=== PATIENT | male | born 1990 | race Caucasian/White ===

== ENCOUNTER 2019-02-17 17:49 | Inpatient (IN) ==
--- NOTE | 2019-02-17 18:01 | Emergency Department Note ---
Disposition Clinical Impression: Suicidal ideation, Acute psychosis Disposition: Admitted As Inpatient Condition: Fair Referrals: NONE,PCP [Primary Care Provider] - Time of Disposition: 20:54 Psych HPI - General Stated Complaint: SI Time Seen by Provider: 02/17/19 17:52 Source: EMS - History of Present Illness HPI Narrative: This is a 28-year-old gentleman with a history of bipolar disorder and schizophrenia who presents today for evaluation for suicidal ideation. Patient was seen ar [facility] ED today and evaluated for this presentation. He was sent here for psychiatric evaluation for SI and acute psychosis. Patient is not giving me much history. Patient tells me that he has been traveling. He has no physical complaints. I reviewed the notes from his recent ED visit at [facility] today. He apparently has been having some hallucinations and some suicidal ideation and there has been concern by family. His mom is not here at this time. Pt complaint: suicidal ideation History of similar episodes: Yes Associated Psychiatric Symptoms: suicidal ideation, auditory hallucinations - Related Data Home Medications Medication Instructions Recorded Confirmed Divalproex Sodium [Depakote] 250 mg PO BID 02/17/19 02/17/19 Loxapine Succinate [Loxapine] 10 mg PO QID 02/17/19 02/17/19 OLANZapine [Zyprexa] 2.5 mg PO DAILY 02/17/19 02/17/19 Allergies Allergy/AdvReac Type Severity Reaction Status Date / Time acetaminophen [From Percocet] AdvReac Itching Verified 02/17/19 15:17 oxycodone [From Percocet] AdvReac Itching Verified 02/17/19 15:17 Limitations: ROS unobtainable due to patients medical condition Constitutional: Denies: fever Cardiovascular: Denies: chest pain Gastrointestinal: Denies: abdominal pain Psychiatric: Reports: depression, auditory hallucinations, other (Patient does not give much history. He is remaining silent for most of the evaluation.) Past Medical History - Past Medical History Medical history: Reports: no medical history, other Surgical history: Reports: no surgical history Psychiatric history: Reports: anxiety, bipolar, panic disorder, PTSD, schizophrenia, previous psychiatric hospitalization - Social History Smoking Status: Former smoker Smokeless Tobacco Status: No Alcohol use: Reports: none Drug use: Reports: none Physical Exam - General Limitations: no limitations General appearance: alert, in no apparent distress - Head Head exam: atraumatic, normocephalic, normal inspection - Eye Eye exam: Present: normal appearance, PERRL, EOMI - Expanded Eye Exam Pupils: Left: reactive - ENT ENT exam: normal exam, normal oropharynx, mucous membranes moist - Expanded ENT Exam External ear exam: Present: normal external inspection Mouth exam: Present: normal external inspection Teeth exam: Present: normal inspection Throat exam: Present: normal inspection - Neck Neck exam: Present: normal inspection, full ROM, trachea midline - Chest Chest inspection: Present: normal inspection, symmetric chest wall rise - Respiratory Respiratory exam: Present: normal lung sounds bilaterally - Cardiovascular Cardiovascular exam: Present: regular rate, normal rhythm, normal heart sounds - Abdominal Exam Abdominal exam: Present: soft, Non-Tender. Absent: tenderness, distention, guarding, rebound, rigidity - Extremities Exam Extremities exam: Present: normal inspection, full ROM. Absent: tenderness, pedal edema - Expanded Upper Extremity Exam Shoulder exam: Present: normal inspection, full ROM Arm exam: Present: normal inspection, full ROM Elbow exam: Present: normal inspection, full ROM Forearm/Wrist exam: Present: normal inspection, full ROM Hand exam: Present: normal inspection, full ROM Vascular exam: Normal: capillary refill, radial pulse - Expanded Lower Extremity Exam Hip/Pelvis exam: Present: normal inspection, full ROM Upper leg exam: Present: normal inspection, full ROM Knee exam: Present: normal inspection, full ROM Lower leg exam: Present: normal inspection, full ROM Ankle exam: Present: normal inspection, full ROM Foot/toe exam: Present: normal inspection, full ROM Neurovascular/Tendon exam: Absent: motor deficit, sensory deficit, tendon deficit - Back Exam Back exam: Present: normal inspection, full ROM. Absent: tenderness - Neurological Exam Neurological exam: Present: alert, oriented X3 - Expanded Neurological Exam Patient oriented to: Present: person, place, time Coma Scale Eye Opening: Spontaneous Coma Scale Motor Response: Obeys Commands Coma Scale Verbal Response: Oriented Coma Scale Total: 15 - Psychiatric Psychiatric exam: Present: normal mood, depressed, flat affect, other (Patient has a flat affect. He is not very cooperative. He appears withdrawn.) - Skin Skin exam: Present: warm, dry, intact, normal color Course Vital Signs Temperature 99.1 F 02/17/19 17:57 Pulse Rate 79 02/17/19 17:57 Respiratory Rate 16 02/17/19 17:57 Blood Pressure 111/75 09/13/19 17:57 O2 Sat by Pulse Oximetry 98 02/17/19 17:57 Temperature 99.1 F 02/17/19 17:57 Pulse Rate 79 02/17/19 17:57 Respiratory Rate 16 02/17/19 17:57 Blood Pressure 111/75 02/17/19 17:57 O2 Sat by Pulse Oximetry 98 02/17/19 17:57 Oxygen Delivery Oxygen Delivery Room Air Psych - MDM Narrative Medical decision making narrative: She denies significant psychosis with suicidal ideation. Labs done at [facility] e reviewed. Patient is medically cleared for psychiatric evaluation. 2049 Patient has been seen by psychiatry. Patient will be admitted. She is medically stable. Psychiatric Medical Clearance - Medical Clearance Checklist Does the patient have a NEW psychiatric condition?: Yes Any abnormalities indicating possible medical illness?: No Any history of medical issues?: No Medical History: No Social History Section defined Any abnormal vital signs prior to transfer?: No Current Vitals: Last Vital Signs Temp 99.1 F 02/17/19 17:57 Pulse 79 02/17/19 17:57 Resp 16 02/17/19 17:57 BP 111/75 02/17/19 17:57 Pulse Ox 98 02/17/19 17:57 Is the patient intoxicated or cognitively impaired?: No Any abnormalities on the physical exam?: No Any abnormal labs?: No Statement of Medical Clearance: I have evaluated the patient, reviewed diagnostic information, and certify that the patient's medical condition is sufficiently stable that transfer to the psychiatric unit does not pose a significant risk of deterioration.
[2019-02-17] MEDS ORDERED: MOM Conc 10 ML UD.LIQ PO PRN (21:23)
[2019-02-17] MEDS ORDERED: Haloperidol Lactate 5 MG/ML VIAL IM PRN (21:23)
[2019-02-17] MEDS ORDERED: *HR* LORazepam 2 MG/ML VIAL IM PRN (21:23)
[2019-02-17] MEDS ORDERED: *HR* LORazepam 1 MG TABLET PO PRN (21:23)
[2019-02-17] MEDS ORDERED: Mag Hydrox/Al Hydrox/Simeth 30 ML UDC PO PRN (21:23)
[2019-02-17] MEDS ORDERED: Ibuprofen 400 MG TABLET PO PRN (21:23)
[2019-02-17] MEDS ORDERED: *HR* LORazepam 1 MG TABLET PO ONE (21:31)
[2019-02-17] MEDS ORDERED: OLANZapine 5 MG TAB.RAPDIS PO ONE (21:31)
--- NOTE | 2019-02-18 10:00 | Psychiatry History & Physical ---
Date of Encounter: 02/18/19 Time of Encounter: 09:40 History of Present Illness Patient Stated Chief Complaint: "I do not know" Medicare Admission Attestation: For traditional Medicare patients the provided hospital inpatient services are reasonable and necessary and in the case of services not specified as inpatient-only under 42 CFR 419.22 (n), that they are appropriately provided as inpatient services in accordance 42 CFR 412.3. For Critical Access Hospital the patient may reasonably be expected to be discharged or transferred to a hospital within 96 hours after admission to the Critical Access Hospital. Admitted From: Emergency Dept Plans for Post Hospital Care: Home History of Present Illness: Mr. Murillo is a 28 year old male who was brought to the ED via EMS with report of suicidal ideations. Per EMS report they were called to the patient's residence for suicidal ideation. Patient's mother told EMS that patient has a history of bipolar disorder and schizophrenia and has been out of his medications. She stated that he had wandered off this morning and was found walking on the train tracks. Mother stated that patient tried to get away from her to step in front of an oncoming train. Mother also stated the patient had made threats of burning down the house. Mother also stated the patient has been hallucinating and has not eaten or taken a shower in the past 4 days. Patient was assisted to the cotton brought to the ED. On arrival here patient appears somewhat catatonic. He is not answering most questions. When I asked him why he was here he stated that he wants to leave and get a salad. He told the nurse that he wanted to go to [employer]. I asked him if he was walking on change tracks today and he said no. I asked him what he was doing he stated "I found the paper. Daughter was there. On review of systems the only answer the patient gave was that he was slightly nauseous. He denies any pain. He was cooperative with my physical exam which shows that he is somewhat disheveled and dirty but not in any distress. We were told patient has not been taking his medications. His pharmacy was contacted who stated that he had not picked up any refills since October and he is apparently supposed to be on loxapine, Depakote and Zyprexa. Records show that he was seen at [facility] ED on February 13 after disappearing for several hours. He will was apparently evaluated by one day and referred to follow up with [facility]. Patient's chart indicates he has a history of anxiety, schizophrenia, bipolar disorder, PTSD and panic disorder. When asked specifically about homicidal or suicidal ideations patient does not answer me. I attempted to contact his mother on the phone number that was given to EMS and there was no answer in the mailbox is full. Based on the information provided to EMS there is concern the patient is suicidal and high risk at this time. This morning he is grossly disorganized and appears somewhat catatonic. He is standing and walking at times and other times posturing in odd ways. At times he is echolalic repeating after me what I say. At no times is he able to coherently answer question. Night he did tell the psychiatric nurse that he needed Zyprexa so he was started on that. He is not taking care of his basic ADLs. He tried to kill himself by walking into train tracks and also make comments at the home to burn down the house so he is clearly at risk of harm to himself and others if not treated. Past Med Surg Social Fam HX - Past Medical History Medical history: no medical history, other - Past Psychiatric History Psychiatric history: Reports: bipolar, schizophrenia, previous psychiatric hospitalization Past psychiatric history details: According to records he has previously been diagnosed with post get from and bipolar disorder which would more likely be actually diagnosis of schizoaffective disorder. It is not clear if he is linked with outpatient services and he will not answer me. He has had prior psychiatric hospitalizations. He will not respond if he has been trying to hurt himself before this most recent episode. Family psychiatric history: No Family History of Suicide: None - Past Surgical History Surgical History: no surgical history - Social History Smoking Status: Former smoker Smokeless Tobacco Status: No Alcohol use: none Drug use: none Medications & Allergies Divalproex Sodium [Depakote] 250 mg PO BID 02/17/19 [History] Loxapine Succinate [Loxapine] 10 mg PO QID 02/17/19 [History] OLANZapine [Zyprexa] 2.5 mg PO DAILY 02/17/19 [History] Allergy/AdvReac Type Severity Reaction Status Date / Time acetaminophen [From Percocet] AdvReac Itching Verified 02/17/19 15:17 oxycodone [From Percocet] AdvReac Itching Verified 02/17/19 15:17 Review of Systems ROS unobtainable: due to patient condition Psychiatric: Reports: auditory hallucinations, visual hallucinations, difficulty concentrating Exam - HEENT Head exam IM: Present: atraumatic Eye exam IM: Present: EOMI ENT exam IM: Present: mucous membranes dry - Neurological Neurological exam: Present: CN II-XII intact (Grossly) - Respiratory Respiratory exam IM: Absent: respiratory distress - GI/Abdominal GI/Abdominal exam IM: Present: no peritoneal signs - Extremities Extremities exam IM: Present: full ROM - Skin Skin exam IM: Absent: abrasion - Constitutional Vitals: Temp Pulse Resp BP Pulse Ox 98.3 F 67 14 104/68 100 02/18/19 09:00 02/18/19 09:00 02/18/19 09:00 02/18/19 09:00 02/18/19 09:00 General appearance: disheveled, malodorous, thin - Musculoskeletal Gait: shuffling Station: stooped Strength & Tone: normal for patient - Psychiatric Patient Orientation: Yes Person Level of alertness: Follows commands (Sometimes) Behavior: guarded, suspicious, withdrawn Psychomotor activity: Slowed Eye Contact: No Eye Contact Mood Description: Other Patient description of mood: Will not answer regarding his mood Affect description: flat Speech Volume: No speech Speech pattern: impoverished Language & Vocabulary: limited Thought Process: Thought Blocking Thought Content: Yes Suicidal ideation, Yes Homicidal ideation, Yes Paranoid delusion Perceptual Disturbances: Yes Auditory hallucinations, Yes Visual hallucinations Attention Span Ability: Unable to Focus, Unable to Sustain Attention Memory Description: Immediate Impaired, Recent Impaired, Remote Impaired Patient Reliability: Not Reliable Historian Fund of knowledge: No aware of current events Intelligence Estimate: Below Average Judgment: Poor Insight: None Assessment and Plan (1) Schizoaffective disorder Current visit: Yes Status: Acute Plan: Admit inpatient for safety and stabilization, Close observation, Suicide Precautions per unit protocol, Encourage participation in unit milieu, Group Therapy, Monitor sleep, Monitor appetite Additional Plan: According to records patient was on low doses of both loxapine and Zyprexa. Makes no sense at this time to try to maximize the Zyprexa. If that does not work we will consider adding Prolixin or Haldol is they can both be given in decanoate form. We will continue his Depakote. Encourage group attendance. He will also use Ativan 1 by mouth 3 times a day for his catatonic features. He is equals 0. Risks, benefits, side effects, alternatives discussed w/pt: Yes Patient agreeable to treatment: Yes Plans for Post Hospital Care: Home Estimated Length of Stay (Days): 5 Qualifiers: Schizoaffective disorder type: bipolar Qualified Code(s): F25.0 - Schizoaffective disorder, bipolar type
[2019-02-18] MEDS: *HR* LORazepam 1 MG TABLET PO SCH ×3 (11:24→21:45)
[2019-02-18] MEDS: Divalproex (24 HR) 500 MG TABLET PO SCH ×2 (11:25→21:04)
[2019-02-18] MEDS: OLANZapine 5 MG TAB.RAPDIS PO SCH ×2 (11:25→21:06)
[2019-02-19] MEDS: *HR* LORazepam 1 MG TABLET PO SCH ×3 (08:46→21:14)
[2019-02-19] MEDS: Divalproex (24 HR) 500 MG TABLET PO SCH ×2 (08:46→21:14)
[2019-02-19] MEDS: OLANZapine 5 MG TAB.RAPDIS PO SCH ×2 (08:46→21:14)
--- NOTE | 2019-02-19 09:53 | Psychiatry Progress Note ---
Date of Encounter: 02/19/19 Time of Encounter: 09:45 Subjective Interval history: Patient continues to be very psychotic. He has significant thought blocking and cannot answer most questions. For instance he went up to the nurse's station multiple times yesterday repeatedly asking for a cigarette condenser tester and even after he was told that we did not smoke here he would just immediately asked the question again without seeming to register what was being told to him. He has posturing and continues to have catatonic appearance despite the Ativan. He did take his medications last night but only with much encouragement. He says that we should just let him . He continues to appear to be responding to internal stimuli and reporting that he hears voices telling him to . Review of Systems Psychiatric: Reports: suicidal ideation, auditory hallucinations, visual hallucinations, confusion, difficulty concentrating Results - Vital Signs Vital Signs: Temp Pulse Resp BP Pulse Ox 97.5 F L 70 16 106/99 99 02/19/19 09:00 02/19/19 09:00 02/19/19 09:00 02/19/19 09:00 02/19/19 09:00 Assessment and Plan (1) Schizoaffective disorder Current visit: Yes Status: Acute Plan: Continue hospitalization, Close observation, Suicide Precautions per unit protocol, Encourage participation in unit milieu, Group Therapy, Monitor sleep, Monitor appetite Additional Plan: Continue current medications. Consider increase Ativan of catatonic symptoms do not improve today. We will consider need for increased Zyprexa. Check Depakote level on Wednesday. His mother's phone is going to voicemail and the voice box is full. Encourage group attendance. Risks, benefits, side effects, alternatives discussed w/pt: Yes Patient agreeable to treatment: Yes Qualifiers: Schizoaffective disorder type: bipolar Qualified Code(s): F25.0 - Schizoaffective disorder, bipolar type Consult Discharge Plan - Plan Psychiatry Exam - Constitutional Vitals: Temp Pulse Resp BP Pulse Ox 97.5 F L 70 16 106/99 99 02/19/19 09:00 02/19/19 09:00 02/19/19 09:00 02/19/19 09:00 02/19/19 09:00 General appearance: disheveled, thin - Musculoskeletal Gait: slow, shuffling Station: posturing Strength & Tone: mild weakness - Psychiatric Patient Orientation: Yes Person Level of alertness: Alert Behavior: uncooperative, guarded, suspicious, distractible Psychomotor activity: Catatonic Eye Contact: No Eye Contact Mood Description: Other Patient description of mood: "I do not know" Affect description: flat Speech Volume: Whispering Speech pattern: disorganized, impoverished, mumbled, other (Delayed) Language & Vocabulary: limited Thought Process: Thought Blocking Thought Content: Yes Suicidal ideation, Yes Paranoid delusion Perceptual Disturbances: Yes Auditory hallucinations, Yes Visual hallucinations Attention Span Ability: Unable to Focus, Unable to Sustain Attention Memory Description: Immediate Impaired, Recent Impaired, Remote Impaired Patient Reliability: Not Reliable Historian Fund of knowledge: No aware of current events Intelligence Estimate: Average Judgment: Poor Insight: None
[2019-02-19 11:56] LABS: Estimated Average Glucose 85 mg/dl
[2019-02-19 12:28] LABS: Thyroid Stimulating Hormone 0.882 mcIU/mL (0.340-5.600)
[2019-02-20] MEDS: *HR* LORazepam 1 MG TABLET PO SCH ×3 (09:05→20:09)
[2019-02-20] MEDS: Divalproex (24 HR) 500 MG TABLET PO SCH ×2 (09:06→20:09)
[2019-02-20] MEDS: OLANZapine 5 MG TAB.RAPDIS PO SCH ×2 (09:06→20:09)
--- NOTE | 2019-02-20 10:55 | Psychiatry Progress Note ---
Date of Encounter: 02/20/19 Time of Encounter: 09:30 Subjective Interval history: Patient continues to have significant catatonic symptoms. He was noted to be up the phone and just dialing random numbers and then listening before hanging up and continuing to pace the halls. Sometimes he stands and postures and odd manners. He is very delayed in his responses. He continually has to outside and smoke even when he has been told multiple times that he cannot. He appears to be responding to internal stimuli. He is not caring for his activities of daily living and is not bathing and needs encouragement to eat. Review of Systems Psychiatric: Reports: suicidal ideation, auditory hallucinations, visual hallucinations, confusion, difficulty concentrating Results - Vital Signs Vital Signs: Temp Pulse Resp BP Pulse Ox 97 F L 71 16 113/77 100 02/20/19 09:00 02/20/19 09:00 02/20/19 09:00 02/20/19 09:00 02/20/19 09:00 - Labs Labs: Laboratory Results - last 24 hr 02/19/19 02/19/19 02/19/19 11:28 11:28 11:28 Est Mean Plasma Glucose 85 Hemoglobin A1c 4.6 TSH 0.882 Valproic Acid 46 L T.pallidum Ab Interpret Negative Assessment and Plan (1) Schizoaffective disorder Current visit: Yes Status: Acute Plan: Continue hospitalization, Close observation, Suicide Precautions per unit protocol, Encourage participation in unit milieu, Group Therapy, Monitor sleep, Monitor appetite Additional Plan: Continue Zyprexa and Ativan. Consider further increase if patient does not seem to be doing better tomorrow with his catatonia and psychotic symptoms. Encourage group attendance. Therapists working on getting collateral information. Risks, benefits, side effects, alternatives discussed w/pt: Yes Patient agr eeable to treatment: Yes Qualifiers: Schizoaffective disorder type: bipolar Qualified Code(s): F25.0 - Schizoaffective disorder, bipolar type Consult Discharge Plan - Plan Referrals: NONE,PCP [Primary Care Provider] - Psychiatry Exam - Constitutional Vitals: Temp Pulse Resp BP Pulse Ox 97 F L 71 16 113/77 100 02/20/19 09:00 02/20/19 09:00 02/20/19 09:00 02/20/19 09:00 02/20/19 09:00 General appearance: disheveled, thin - Musculoskeletal Gait: slow Station: posturing Strength & Tone: mild weakness - Psychiatric Patient Orientation: Yes Person Level of alertness: Follows commands Behavior: uncooperative, guarded, suspicious, distractible, withdrawn Psychomotor activity: Catatonic Eye Contact: No Eye Contact Mood Description: Other Patient description of mood: No response Affect description: flat Speech Volume: Whispering Speech pattern: impoverished Language & Vocabulary: limited Thought Process: Thought Blocking Thought Content: No Suicidal ideation, No Homicidal ideation, Yes Paranoid delusion Perceptual Disturbances: Yes Auditory hallucinations, Yes Visual hallucinations Attention Span Ability: Unable to Focus, Unable to Sustain Attention Memory Description: Immediate Impaired Patient Reliability: Not Reliable Historian Fund of knowledge: Yes below average Intelligence Estimate: Below Average Judgment: Poor Insight: None
[2019-02-21] MEDS: Divalproex (24 HR) 500 MG TABLET PO SCH ×2 (09:12→20:36)
[2019-02-21] MEDS: *HR* LORazepam 1 MG TABLET PO SCH ×3 (09:13→20:36)
[2019-02-21] MEDS: OLANZapine 5 MG TAB.RAPDIS PO SCH (09:13)
--- NOTE | 2019-02-21 11:39 | Psychiatry Progress Note ---
Date of Encounter: 02/21/19 Time of Encounter: 09:20 Subjective Interval history: Patient continues to have psychotic symptoms. He is a little bit less slowed and reacts little bit better though there is still significant thought blocking. He continues to respond to internal stimuli and endorses auditory hallucinations. He still thinks he should go on a railroad track to harm himself. He is tolerating his medications. Review of Systems Psychiatric: Reports: suicidal ideation, auditory hallucinations, visual hallucinations, confusion, difficulty concentrating Results - Vital Signs Vital Signs: Temp Pulse Resp BP Pulse Ox 97.4 F L 64 14 107/73 100 02/21/19 09:00 02/21/19 09:00 02/21/19 09:00 02/21/19 09:00 02/21/19 09:00 Assessment and Plan (1) Schizoaffective disorder Current visit: Yes Status: Acute Plan: Continue hospitalization, Close observation, Suicide Precautions per unit protocol, Encourage participation in unit milieu, Group Therapy, Monitor sleep, Monitor appetite Additional Plan: The resident spoke with the patient's family reports that at baseline he takes care of his ADLs and thinks clearly, plays guitar, and draws. There is a question as he is but the mother does not believe this to be the case. She is going to call the court house to find out. We will increase Zyprexa to 10 mg by mouth daily at bedtime. Continue Ativan. Encourage group attendance. Risks, benefits, side effects, alternatives discussed w/pt: Yes Patient agreeable to treatment: Yes Qualifiers: Schizoaffective disorder type: bipolar Qualified Code(s): F25.0 - Schizoaffective disorder, bipolar type Consult Discharge Plan - Plan Referrals: NONE,PCP [Primary Care Provider] - Psychiatry Exam - Constitutional Vitals: Temp Pulse Resp BP Pulse Ox 97.4 F L 64 14 107/73 100 02/21/19 09:00 02/21/19 09:00 02/21/19 09:00 02/21/19 09:00 02/21/19 09:00 General appearance: age & developmentally appropriate, disheveled - Musculoskeletal Gait: slow Station: stooped Strength & Tone: mild weakness - Psychiatric Patient Orientation: Yes Person, Yes Time, Yes Place Level of alertness: Alert Behavior: guarded, suspicious, withdrawn Psychomotor activity: Slowed Eye Contact: No Eye Contact Mood Description: Other Patient description of mood: "I do not know" Affect description: flat Speech Volume: Soft/Quiet Speech pattern: slowed, limited Language & Vocabulary: limited Thought Process: Thought Blocking Thought Content: Yes Suicidal ideation, Yes Paranoid delusion Perceptual Disturbances: Yes Auditory hallucinations, Yes Visual hallucinations Attention Span Ability: Unable to Focus, Unable to Sustain Attention Memory Description: Immediate Impaired, Recent Intact, Remote Intact Patient Reliability: Questionable Historian Fund of knowledge: Yes average Intelligence Estimate: Average Judgment: Poor Insight: None
[2019-02-21] MEDS: hydrOXYzine pamoate 25 MG CAPSULE PO PRN (20:36)
[2019-02-21] MEDS: traZODone 50 MG TABLET PO PRN (20:36)
[2019-02-21] MEDS: OLANZapine 10 MG TAB.RAPDIS PO SCH (20:36)
--- NOTE | 2019-02-22 08:53 | Psychiatry Progress Note ---
Date of Encounter: 02/22/19 Time of Encounter: 08:20 Subjective Interval history: Patient continues to be very delayed in his responses. He has considerable thought blocking. This morning when I asked him about signing in voluntarily he waited minutes and then answered "have to call my mom". He does not have capacity to make decisions regarding signing in so I will begin probate paperwork. He attempted 1 group yesterday but Very distracted and could not complete the task and walked away. He was behaving bizarrely yesterday sitting crosslegged on the floor and various positions and not wanting to get up despite being in the way. He appears to be responding to internal stimuli. Not caring for ADLs. Review of Systems Psychiatric: Reports: suicidal ideation, auditory hallucinations, visual hallucinations, confusion, difficulty concentrating Results - Vital Signs Vital Signs: Temp Pulse Resp BP Pulse Ox 98.1 F 65 14 109/74 100 02/21/19 21:00 02/21/19 21:00 02/21/19 21:00 02/21/19 21:00 02/21/19 21:00 Assessment and Plan (1) Schizoaffective disorder Current visit: Yes Status: Acute Plan: Continue hospitalization, Close observation, Suicide Precautions per unit protocol, Encourage participation in unit milieu, Group Therapy, Monitor sleep, Monitor appetite Additional Plan: Approximately was increased yesterday. Continue this. We will start probate paperwork as he is not signing in and does not capacity to make decisions. Encourage group attendance. Risks, benefits, side effects, alternatives discussed w/pt: Yes Patient agreeable to treatment: Yes Qualifiers: Schizoaffective disorder type: bipolar Qualified Code(s): F25.0 - Schizoaffective disorder, bipolar type Consult Discharge Plan - Plan Referrals: NONE,PCP [Primary Care Provider] - Psychiatry Exam - Constitutional Vitals: Temp Pulse Resp BP Pulse Ox 98.1 F 65 14 109/74 100 02/21/19 21:00 02/21/19 21:00 02/21/19 21:00 02/21/19 21:00 02/21/19 21:00 General appearance: disheveled, thin - Musculoskeletal Gait: slow Station: stooped Strength & Tone: severe weakness - Psychiatric Patient Orientation: Yes Person Level of alertness: Alert, Follows commands Behavior: suspicious, distractible, withdrawn Psychomotor activity: Catatonic Eye Contact: Minimal Contact Mood Description: Depressed Patient description of mood: Sad Affect description: flat Speech Volume: Soft/Quiet Speech pattern: slowed, limited, impoverished Language & Vocabulary: limited Thought Process: Thought Blocking Thought Content: Yes Suicidal ideation, Yes Paranoid delusion Perceptual Disturbances: Yes Auditory hallucinations, Yes Visual hallucinations Attention Span Ability: Unable to Focus, Unable to Sustain Attention Memory Description: Immediate Impaired, Recent Impaired, Remote Impaired Patient Reliability: Not Reliable Historian Fund of knowledge: Yes average Intelligence Estimate: Average Judgment: Poor Insight: None
[2019-02-22] MEDS: Divalproex (24 HR) 500 MG TABLET PO SCH ×2 (11:46→21:37)
[2019-02-22] MEDS: OLANZapine 5 MG TAB.RAPDIS PO SCH (11:46)
[2019-02-22] MEDS: *HR* LORazepam 1 MG TABLET PO SCH ×3 (11:46→21:37)
[2019-02-22] MEDS: OLANZapine 10 MG TAB.RAPDIS PO SCH (21:37)
[2019-02-22] MEDS: traZODone 50 MG TABLET PO PRN (23:12)
[2019-02-23] MEDS: *HR* LORazepam 1 MG TABLET PO SCH ×3 (09:06→20:33)
[2019-02-23] MEDS: Divalproex (24 HR) 500 MG TABLET PO SCH ×2 (09:06→20:33)
[2019-02-23] MEDS: OLANZapine 5 MG TAB.RAPDIS PO SCH (09:06)
--- NOTE | 2019-02-23 15:17 | Psychiatry Progress Note ---
Date of Encounter: 02/23/19 Time of Encounter: 15:15 Subjective Interval history: Client is very ill. Psychotic. Delayed responses. Thought blocking. Unable to make any eye contact. Tearful and stating he misses his family. Appears catatonic with some posturing at times. Currently taking Ativan three times a day in addition to Depakote and Zyprexa. Will continue to titrate meds. May need Clozapine if no response soon. Probate paperwork filed yesterday. Review of Systems Constitutional: Denies: fever, chills, weakness, weight change Eyes: Denies: eye pain, vision change Ears, Nose, Throat: Denies: ear pain, throat pain, dental pain, hearing loss, congestion Cardiovascular: Denies: chest pain, palpitations, dyspnea on exertion Respiratory: Denies: cough, dyspnea, wheezes Gastrointestinal: Denies: abdominal pain, nausea, vomiting, diarrhea, constipation Musculoskeletal: Denies: joint swelling, joint pain Neurological: Denies: headache, weakness, numbness, memory loss Psychiatric: Reports: suicidal ideation, auditory hallucinations, visual hallucinations, confusion, difficulty concentrating Results - Vital Signs Vital Signs: Temp Pulse Resp BP Pulse Ox 97.4 F L 81 16 106/68 100 02/23/19 09:00 02/23/19 09:00 02/23/19 09:00 02/23/19 09:00 02/23/19 09:00 Assessment and Plan (1) Schizoaffective disorder Current visit: Yes Status: Acute Plan: Continue hospitalization, Close observation, Suicide Precautions per unit protocol, Encourage participation in unit milieu, Group Therapy, Monitor sleep, Monitor appetite Risks, benefits, side effects, alternatives discussed w/pt: Yes Patient agreeable to treatment: Yes Qualifiers: Schizoaffective disorder type: bipolar Qualified Code(s): F25.0 - Schizoaffective disorder, bipolar type Consult Discharge Plan - Plan Referrals: NONE,PCP [Primary Care Provider] - Psychiatry Exam - Constitutional Vitals: Temp Pulse Resp BP Pulse Ox 97.4 F L 81 16 106/68 100 02/23/19 09:00 02/23/19 09:00 02/23/19 09:00 02/23/19 09:00 02/23/19 09:00 General appearance: disheveled - Musculoskeletal Gait: slow Station: posturing Strength & Tone: normal for patient - Psychiatric Patient Orientation: Yes Person, Yes Place Level of alertness: Alert Behavior: anxious Psychomotor activity: Slowed Eye Contact: No Eye Contact Mood Description: Depressed Affect description: congruent with mood Speech Volume: Soft/Quiet Speech pattern: slowed Language & Vocabulary: consistent with education Thought Process: Thought Blocking Thought Content: No Suicidal ideation, No Homicidal ideation, No Overt delusions Perceptual Disturbances: Yes Reacting to internal stimuli, Yes Auditory hallucinations Attention Span Ability: Capable of Focused Attention Memory Description: Immediate Intact, Recent Impaired, Remote Intact Patient Reliability: Questionable Historian Fund of knowledge: Yes abstraction ability Intelligence Estimate: Average Judgment: Limited Insight: Minimal
[2019-02-23] MEDS: hydrOXYzine pamoate 25 MG CAPSULE PO PRN (20:33)
[2019-02-23] MEDS: OLANZapine 10 MG TAB.RAPDIS PO SCH (20:33)
[2019-02-23] MEDS: traZODone 50 MG TABLET PO PRN (20:33)
[2019-02-24] MEDS: OLANZapine 5 MG TAB.RAPDIS PO SCH (08:57)
[2019-02-24] MEDS: Divalproex (24 HR) 500 MG TABLET PO SCH ×2 (08:57→20:55)
[2019-02-24] MEDS: *HR* LORazepam 1 MG TABLET PO SCH ×3 (08:57→20:55)
--- NOTE | 2019-02-24 09:47 | Psychiatry Progress Note ---
Date of Encounter: 02/24/19 Time of Encounter: 09:43 Subjective Interval history: Remains very ill. Some concern that he may have been cheeking meds, at least initially. He is on a dissolvable and staff are watching him. However, his progress has been really slow so cheeking is definitely a possibility. Probate/forced med hearing scheduled for next week. Can look at injectables to assure he is getting medication if needed after this hearing. Client very tearful yesterday about missing his family. Has not had any visitors. Encouraged to reach out to them and ask them to visit him here. Would be good to have their input as to client's baseline and level of improvement as well. When asked if he felt comfortable asking family to come see him all he would say is "pavement." Review of Systems Constitutional: Denies: fever, chills, weakness, weight change Eyes: Denies: eye pain, vision change Ears, Nose, Throat: Denies: ear pain, throat pain, dental pain, hearing loss, congestion Cardiovascular: Denies: chest pain, palpitations, dyspnea on exertion Respiratory: Denies: cough, dyspnea, wheezes Gastrointestinal: Denies: abdominal pain, nausea, vomiting, diarrhea, constipation Musculoskeletal: Denies: joint swelling, joint pain Neurological: Denies: headache, weakness, numbness, memory loss Psychiatric: Reports: suicidal ideation, auditory hallucinations, visual hallucinations, confusion, difficulty concentrating Results - Vital Signs Vital Signs: Temp Pulse Resp BP Pulse Ox 98.6 F 87 18 108/73 98 02/23/19 21:00 02/23/19 21:00 02/23/19 21:00 02/23/19 21:00 02/23/19 21:00 Assessment and Plan (1) Schizoaffective disorder Current visit: Yes Status: Acute Plan: Continue hospitalization, Close observation, Suicide Precautions per unit protocol, Encourage participation in unit milieu, Group Therapy, Monitor sleep, Monitor appetite Risks, benefits, side effects, alternatives discussed w/pt: Yes Patient agreeable to treatment: Yes Qualifiers: Schizoaffective disorder type: bipolar Qualified Code(s): F25.0 - Schizoaffective disorder, bipolar type Consult Discharge Plan - Plan Referrals: NONE,PCP [Primary Care Provider] - Psychiatry Exam - Constitutional Vitals: Temp Pulse Resp BP Pulse Ox 98.6 F 87 18 108/73 98 09/19/19 21:00 02/23/19 21:00 02/23/19 21:00 02/23/19 21:00 02/23/19 21:00 General appearance: disheveled - Musculoskeletal Gait: slow Station: posturing Strength & Tone: normal for patient - Psychiatric Patient Orientation: Yes Person, Yes Time, Yes Place Level of alertness: Alert Behavior: withdrawn Psychomotor activity: Slowed Eye Contact: No Eye Contact Mood Description: Depressed Affect description: congruent with mood Speech Volume: Soft/Quiet Speech pattern: slowed Language & Vocabulary: consistent with education Thought Process: Thought Blocking Thought Content: No Suicidal ideation, No Homicidal ideation Perceptual Disturbances: Yes Reacting to internal stimuli, Yes Auditory hallucinations Attention Span Ability: Capable of Focused Attention Memory Description: Immediate Intact, Recent Impaired, Remote Intact Patient Reliability: Questionable Historian Fund of knowledge: Yes abstraction ability Intelligence Estimate: Average Judgment: Limited Insight: Minimal
[2019-02-24] MEDS: OLANZapine 10 MG TAB.RAPDIS PO SCH (20:55)
[2019-02-24] MEDS: hydrOXYzine pamoate 25 MG CAPSULE PO PRN (20:55)
[2019-02-24] MEDS: traZODone 50 MG TABLET PO PRN (20:56)
[2019-02-25] MEDS: OLANZapine 5 MG TAB.RAPDIS PO SCH (10:01)
[2019-02-25] MEDS: Divalproex (24 HR) 500 MG TABLET PO SCH ×2 (10:01→20:47)
[2019-02-25] MEDS: *HR* LORazepam 1 MG TABLET PO SCH ×3 (10:01→20:48)
--- NOTE | 2019-02-25 11:23 | Psychiatry Progress Note ---
Date of Encounter: 02/25/19 Time of Encounter: 11:18 Subjective Interval history: Still very ill but there were some small improvements noted today. His responses to questions were more on target. His speech was minimal but what he said made sense. 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 However, he made no eye contact and said he felt "worn out." He also requested a CAT Scan because "God told me to ask." At one point during the interview he looked to his left and said "God, thank you for being there." Seems to be eating and sleeping well. Out of room during the day and attempts to interact. Staff are monitoring his med compliance closely. Suspect he was cheeking his meds earlier in his stay. Hopefully, if he gets regular doses now he will start to show additional improvements. Not yet discharge ready. Psychosis is still severe and would interfere with his ability to function outside a hospital setting. Review of Systems Constitutional: Denies: fever, chills, weakness, weight change Eyes: Denies: eye pain, vision change Ears, Nose, Throat: Denies: ear pain, throat pain, dental pain, hearing loss, congestion Cardiovascular: Denies: chest pain, palpitations, dyspnea on exertion Respiratory: Denies: cough, dyspnea, wheezes Gastrointestinal: Denies: abdominal pain, nausea, vomiting, diarrhea, constipation Musculoskeletal: Denies: joint swelling, joint pain Neurological: Denies: headache, weakness, numbness, memory loss Psychiatric: Reports: suicidal ideation, auditory hallucinations, visual halluc inations, confusion, difficulty concentrating Results - Vital Signs Vital Signs: Temp Pulse Resp BP Pulse Ox 97.8 F 82 16 97/62 100 02/25/19 09:00 02/25/19 09:00 02/25/19 09:00 02/25/19 09:00 02/25/19 09:00 Assessment and Plan (1) Schizoaffective disorder Current visit: Yes Status: Acute Plan: Continue hospitalization, Close observation, Suicide Precautions per unit protocol, Encourage participation in unit milieu, Group Therapy, Monitor sleep, Monitor appetite Risks, benefits, side effects, alternatives discussed w/pt: Yes Patient agreeable to treatment: Yes Qualifiers: Schizoaffective disorder type: bipolar Qualified Code(s): F25.0 - Schizoaffective disorder, bipolar type Consult Discharge Plan - Plan Referrals: NONE,PCP [Primary Care Provider] - Psychiatry Exam - Constitutional Vitals: Temp Pulse Resp BP Pulse Ox 97.8 F 82 16 97/62 100 02/25/19 09:00 02/25/19 09:00 02/25/19 09:00 02/25/19 09:00 02/25/19 09:00 General appearance: age & developmentally appropriate, well-groomed, well- nourished - Musculoskeletal Gait: slow Station: stooped Strength & Tone: normal for patient - Psychiatric Patient Orientation: Yes Person, Yes Time, Yes Place Level of alertness: Alert Behavior: withdrawn Psychomotor activity: Slowed Eye Contact: No Eye Contact Mood Description: Depressed Affect description: congruent with mood Speech Volume: Soft/Quiet Speech pattern: monotone Language & Vocabulary: consistent with education Thought Process: Thought Blocking Thought Content: No Suicidal ideation, No Homicidal ideation Perceptual Disturbances: Yes Reacting to internal stimuli Attention Span Ability: Capable of Focused Attention Memory Description: Grossly Intact Patient Reliability: Questionable Historian Fund of knowledge: Yes abstraction ability, Yes aware of current events Intelligence Estimate: Average Judgment: Limited Insight: Minimal
[2019-02-25] MEDS: hydrOXYzine pamoate 25 MG CAPSULE PO PRN (20:47)
[2019-02-25] MEDS: traZODone 50 MG TABLET PO PRN (20:47)
[2019-02-25] MEDS: OLANZapine 10 MG TAB.RAPDIS PO SCH (20:47)
[2019-02-26] MEDS: OLANZapine 5 MG TAB.RAPDIS PO SCH (09:34)
[2019-02-26] MEDS: *HR* LORazepam 1 MG TABLET PO SCH ×3 (09:34→20:22)
[2019-02-26] MEDS: Divalproex (24 HR) 500 MG TABLET PO SCH ×2 (09:34→20:22)
--- NOTE | 2019-02-26 09:56 | Psychiatry Progress Note ---
Date of Encounter: 02/26/19 Time of Encounter: 09:50 Subjective Interval history: Remains very ill. Took medication without issue on day shift. However, in the evening he dumped his medication in his water cup. He then drank the water. Since his antipsychotic is a dissolvable he should have received his normal dose but it is hard to say given his limited clinical improvement. Probate/forced med hearing next week. After he has been approved for forced meds would be best to get him on a long acting injectable so staff can be assured he is getting his medication. If he does not start responding to this treatment will need to look at Clozapine. He remains bizarre in speech and behaviors at times. Spent a lot of time sitting on the floor yesterday. Today he told this journalists and other writers he wants to travel. He then said he wants to go to "." This journalists and other writers asked him where that was and he responded with "it's a gas station. I probably couldn't afford it now anyway." Clothing has multiple stains. Staff have been encouraging him to shower and change but he is not meeting his ADLs. When asked about this today client denied he was fearful of showering and stated he showered yesterday. Review of Systems Constitutional: Denies: fever, chills, weakness, weight change Eyes: Denies: eye pain, vision change Ears, Nose, Throat: Denies: ear pain, throat pain, dental pain, hearing loss, congestion Cardiovascular: Denies: chest pain, palpitations, dyspnea on exertion Respiratory: Denies: cough, dyspnea, wheezes Gastrointestinal: Denies: abdominal pain, nausea, vomiting, diarrhea, constipation Musculoskeletal: Denies: joint swelling, joint pain Neurological: Denies: headache, weakness, numbness, memory loss Psychiatric: Reports: suicidal ideation, auditory hallucinations, visual hallucinations, confusion, difficulty concentrating Results - Vital Signs Vital Signs: Temp Pulse Resp BP Pulse Ox 98.7 F 88 16 105/66 97 02/25/19 20:12 02/25/19 20:12 02/25/19 20:12 02/25/19 20:12 02/25/19 20:12 Assessment and Plan (1) Schizoaffective disorder Current visit: Yes Status: Acute Plan: Continue hospitalization, Close observation, Suicide Precautions per unit protocol, Encourage participation in unit milieu, Group Therapy, Monitor sleep, Monitor appetite Risks, benefits, side effects, alternatives discussed w/pt: Yes Patient agreeable to treatment: Yes Qualifiers: Schizoaffective disorder type: bipolar Qualified Code(s): F25.0 - Schizoaffective disorder, bipolar type Consult Discharge Plan - Plan Referrals: NONE,PCP [Primary Care Provider] - Psychiatry Exam - Constitutional Vitals: Temp Pulse Resp BP Pulse Ox 98.7 F 88 16 105/66 97 02/25/19 20:12 02/25/19 20:12 02/25/19 20:12 02/25/19 20:12 02/25/19 20:12 General appearance: unkempt, disheveled - Musculoskeletal Gait: slow Station: stooped Strength & Tone: normal for patient - Psychiatric Patient Orientation: Yes Person, Yes Time, Yes Place Level of alertness: Alert Behavior: calm, cooperative Psychomotor activity: Slowed Eye Contact: No Eye Contact Mood Description: Depressed Affect description: congruent with mood Speech Volume: Soft/Quiet Speech pattern: monotone Thought Process: Thought Blocking Thought Content: No Suicidal ideation, No Homicidal ideation Perceptual Disturbances: Yes Auditory hallucinations, Yes Visual hallucinations Attention Span Ability: Capable of Focused Attention Memory Description: Immediate Intact, Recent Impaired, Remote Intact Patient Reliability: Questionable Historian Fund of knowledge: Yes abstraction ability, Yes aware of current events Intelligence Estimate: Average Judgment: Limited Insight: Minimal
[2019-02-26] MEDS: OLANZapine 10 MG TAB.RAPDIS PO SCH (20:22)
[2019-02-26] MEDS: traZODone 50 MG TABLET PO PRN (20:22)
[2019-02-27] MEDS: *HR* LORazepam 1 MG TABLET PO SCH ×3 (09:35→21:27)
[2019-02-27] MEDS: OLANZapine 10 MG TAB.RAPDIS PO SCH ×2 (09:36→21:26)
[2019-02-27] MEDS: Divalproex (24 HR) 500 MG TABLET PO SCH ×2 (09:36→21:26)
--- NOTE | 2019-02-27 10:25 | Psychiatry Progress Note ---
Date of Encounter: 02/27/19 Time of Encounter: 09:45 Subjective Interval history: Patient told me today "I am doing okay". I tried to speak with the patient earlier and he stated he had to make a phone call to his grandmother. I asked him how the phone call to his grandmother went, he told me "I do not think it was her". When I questioned him further, he said that there was a woman on the other end talking to him, but he does not think it was his grandmother. He states was trying to call his grandmother so she can come pick him up and take him home. I explained to him he was not ready for discharge at this time. I asked him why he was in the hospital, he told me "my mother lied and wanted to get me in trouble". I asked him what she lied about and he said "I have not smoked since I've been here". Patient states is taking medications but does not know their names. There is multiple documentations of him refusing the medications or dumping medications out. He denies any side effects of the medication, but has no understanding as to why he needs to take them. Patient has a probate court force medication hearing this week. Patient denied any issues on the unit. He told me he was not suicidal or homicidal. "That was in the past". I asked him what that meant. He said he had thought of hurting himself in the past but not now. I asked him about hearing voices other people do not hear. He stated, "I am not sure about that. I hear other species talking to me that others do not know about but I do not know that that is hearing voices". Review of Systems Psychiatric: Reports: suicidal ideation, auditory hallucinations, visual hallucinations, confusion, difficulty concentrating Results - Vital Signs Vital Signs: Temp Pulse Resp BP Pulse Ox 98.2 F 85 14 109/71 98 02/26/19 20:38 02/26/19 20:38 02/26/19 20:38 02/26/19 20:38 02/26/19 20:38 Assessment and Plan (1) Schizoaffective disorder Current visit: Yes Status: Acute Plan: Continue hospitalization, Close observation, Suicide Precautions per unit protocol, Encourage participation in unit milieu, Monitor sleep, Monitor appetite Additional Plan: We will start probate paperwork as he is not signing in and does not capacity to make decisions. Encourage group attendance. Risks, benefits, side effects, alternatives discussed w/pt: Yes (By previous physician, reviewed today) Patient agreeable to treatment: No Qualifiers: Schizoaffective disorder type: bipolar Qualified Code(s): F25.0 - Schizoaffective disorder, bipolar type Consult Discharge Plan - Plan Referrals: NONE,PCP [Primary Care Provider] - Psychiatry Exam - Constitutional Vitals: Temp Pulse Resp BP Pulse Ox 98.2 F 85 14 109/71 98 02/26/19 20:38 02/26/19 20:38 02/26/19 20:38 02/26/19 20:38 02/26/19 20:38 General appearance: age & developmentally appropriate, unkempt, disheveled - Musculoskeletal Gait: slow Station: stooped Strength & Tone: normal for patient - Psychiatric Patient Orientation: Yes Person, Yes Time Level of alertness: Follows commands Behavior: calm Psychomotor activity: Slowed Eye Contact: No Eye Contact (Looks down at the floor) Mood Description: Depressed Affect description: other (restricted) Speech Volume: Soft/Quiet Speech pattern: slowed Thought Process: Evasive, Slowed Thinking Thought Content: Yes Suicidal ideation (denied) Perceptual Disturbances: Yes Reacting to internal stimuli, Yes Auditory hallucinations Attention Span Ability: Capable of Focused Attention Patient Reliability: Questionable Historian Fund of knowledge: Yes below average Intelligence Estimate: Average Judgment: Poor Insight: None
[2019-02-27] MEDS: hydrOXYzine pamoate 25 MG CAPSULE PO PRN (22:52)
[2019-02-27] MEDS: traZODone 50 MG TABLET PO PRN (22:52)
[2019-02-28] MEDS: *HR* LORazepam 1 MG TABLET PO SCH ×3 (08:34→21:48)
[2019-02-28] MEDS: OLANZapine 10 MG TAB.RAPDIS PO SCH ×2 (08:34→21:48)
[2019-02-28] MEDS: Divalproex (24 HR) 500 MG TABLET PO SCH ×2 (08:35→21:48)
[2019-02-28] MEDS: Nicotine 14 MG PATCH.TD24 TD SCH (09:26)
--- NOTE | 2019-02-28 14:14 | Psychiatry Progress Note ---
Date of Encounter: 02/28/19 Time of Encounter: 13:45 Subjective Interval history: I spoke with the patient further today after his probate court hearing to see if he understood what went on in the courtroom. The probate courts ruled for patient to remain inpatient for further medication stabilization including force medications, if needed. I asked him if he understood what that meant. He told me "yes". I asked him to explain it, and he did not reply. He looked down at the floor the whole time and never made eye contact. I re-explained to him that he needs to continue taking the medications he is currently taking to help stabilize his thoughts and mood. (He complained to me earlier today that he was hearing voices and took a prn of Haldol which he said helped. He denied command hallucinations to hurt himself.) I explained to him that is getting lab work tomorrow morning to check his medication levels, to possibly make further medication adjustments. I asked him if he had any questions. He responded by saying "what's for dinner?". He denied any side effects of his medications earlier today when I interviewed him and denied any further thoughts of suicide. We will continue to monitor him and adjust medications after drug levels for medications are reported from tomorrow morning's lab. Note: Long-acting decanoate preparations were discussed in the court hearing. These are considerations, especially for his noncompliance on an outpatient basis, but will continue on with the orals Zydis and Depakote at this time to get him further stabilized before potentially utilizing lobsterman injectable on an outpatient basis. Review of Systems Psychiatric: Reports: suicidal ideation, auditory hallucinations, visual hallucinations, confusion, difficulty concentrating Results - Vital Signs Vital Signs: Temp Pulse Resp BP Pulse Ox 97.5 F L 76 18 111/76 99 02/28/19 09:00 02/28/19 09:00 02/28/19 09:00 02/28/19 09:00 02/28/19 09:00 Assessment and Plan (1) Schizoaffective disorder Current visit: Yes Status: Acute Plan: Continue hospitalization, Close observation, Suicide Precautions per unit protocol, Encourage participation in unit milieu, Monitor sleep, Monitor appetite Risks, benefits, side effects, alternatives discussed w/pt: Yes (Lab ordered: SHAHBAZ, CMPNL, CBC for tomorrow AM) Patient agreeable to treatment: No (Now court ordered by probate court) Qualifiers: Schizoaffective disorder type: bipolar Qualified Code(s): F25.0 - Schizoaffective disorder, bipolar type Consult Discharge Plan - Plan Referrals: NONE,PCP [Primary Care Provider] - Psychiatry Exam - Constitutional Vitals: Temp Pulse Resp BP Pulse Ox 97.5 F L 76 18 111/76 99 02/28/19 09:00 02/28/19 09:00 02/28/19 09:00 02/28/19 09:00 02/28/19 09:00 General appearance: age & developmentally appropriate, unkempt - Musculoskeletal Gait: slow Station: stooped Strength & Tone: normal for patient - Psychiatric Patient Orientation: Yes Person, Yes Place Level of alertness: Follows commands, Other (withdrawn, not spontaneous) Behavior: withdrawn Psychomotor activity: Normal Eye Contact: Minimal Contact Mood Description: Depressed Affect description: constricted Speech Volume: Soft/Quiet Speech pattern: slowed Language & Vocabulary: limited Thought Process: Thought Blocking Thought Content: Yes Overt delusions Perceptual Disturbances: Yes Reacting to internal stimuli Attention Span Ability: Unable to Focus Memory Description: Recent Impaired Patient Reliability: Not Reliable Historian Intelligence Estimate: Average Judgment: Limited Insight: Minimal
[2019-02-28] MEDS: traZODone 50 MG TABLET PO PRN (21:48)
[2019-02-28] MEDS: hydrOXYzine pamoate 25 MG CAPSULE PO PRN (21:48)
[2019-03-01] MEDS: OLANZapine 10 MG TAB.RAPDIS PO SCH ×2 (09:08→21:35)
[2019-03-01] MEDS: Nicotine 14 MG PATCH.TD24 TD SCH (09:08)
[2019-03-01] MEDS: Divalproex (24 HR) 500 MG TABLET PO SCH ×2 (09:08→21:36)
[2019-03-01] MEDS: *HR* LORazepam 1 MG TABLET PO SCH ×3 (09:08→21:35)
[2019-03-01 10:09] LABS: Basophils % 0.6 %; Eosinophils # 0.1 K/mcL (0.0-0.6); Eosinophils % 1.8 %; Hematocrit 45.3 % (37.5-50.1); Hemoglobin 15.8 g/dL (12.9-16.9); Immature Granulocytes % 0.6 % (0-4); Lymphocytes # 1.5 K/mcL (0.6-4.6); Lymphocytes % 29.7 %; Mean Corpuscular HGB Conc 34.9 g/dL (31.6-35.5); Mean Corpuscular Hemoglobin 32.6 pg (28.0-33.3); Mean Corpuscular Volume 93.6 fL (83.0-100.0); Monocytes # 0.3 K/mcL (0.0-1.3); Monocytes % 6.4 %; Neutrophils # 3.1 K/mcL (1.6-8.9); Platelet Count 172 K/mcL (140-400); Red Blood Count 4.84 M/mcL (4.19-5.50); Red Cell Distribution Width 11.9 % (11.5-14.5); Segmented Neutrophils % 60.9 %
[2019-03-01 10:28] LABS: Alanine Aminotransferase 23 Units/L (7-52); Albumin 4.7 g/dL (3.5-5.7); Albumin/Globulin Ratio 2.1 (1.1-2.2); Alkaline Phosphatase 60 Units/L (34-104); Aspartate Amino Transferase 14 Units/L (13-39); BUN/Creatinine Ratio 18 (6-26); Bilirubin,Total 0.6 mg/dL (0.3-1.0); Blood Urea Nitrogen 20 mg/dL (6-20); Calcium 9.6 mg/dL (8.6-10.3); Carbon Dioxide 34 mEq/L (23-29); Chloride 99 mEq/L (98-107); Globulin 2.2 g/dL (2.4-3.5); Glucose 132 mg/dL (70-105); Osmolality,Calculated 296 (280-300); Sodium 141 mEq/L (136-145); Total Protein 6.9 g/dL (6.4-8.9); Valproate 59 mcg/mL (50-100); eGFR For African Americans > 60 (> 60); eGFR For Non-African Americans > 60 (> 60)
--- NOTE | 2019-03-01 18:07 | Psychiatry Progress Note ---
Date of Encounter: 03/01/19 Time of Encounter: 16:30 Subjective Interval history: The patient did not want to engage with me in conversation today. He diverted his gaze and was staring at the floor. He denied side effects of the medications. I told him his lab work was fine and the medications would be increased targeting his psychosis. He acknowledged hearing voices and repeatedly told me "He needs almonds." He is not engaging on the unit. He slowly paces and has little verbal interactions with staff. He reportedly is sleeping. Review of Systems Psychiatric: Reports: suicidal ideation, auditory hallucinations, visual hallucinations, confusion, difficulty concentrating Results - Vital Signs Vital Signs: Temp Pulse Resp BP Pulse Ox 97.4 F L 84 16 106/70 99 03/01/19 09:00 03/01/19 09:00 03/01/19 09:00 03/01/19 09:00 03/01/19 09:00 - Labs Labs: Laboratory Results - last 24 hr 03/01/19 03/01/19 09:14 09:14 WBC 5.0 RBC 4.84 Hgb 15.8 Hct 45.3 MCV 93.6 MCH 32.6 MCHC 34.9 RDW 11.9 Plt Count 172 MPV 12.0 Immature Gran % 0.6 Seg Neutrophils % 60.9 Lymphocytes % 29.7 Monocytes % 6.4 Eosinophils % 1.8 Basophils % 0.6 Neutrophils # 3.1 Lymphocytes # 1.5 Monocytes # 0.3 Eosinophils # 0.1 Basophils # 0.0 Sodium 141 Potassium 4.0 Chloride 99 Carbon Dioxide 34 H BUN 20 Creatinine 1.12 Est GFR ( Amer) > 60 Est GFR (Non-Af Amer) > 60 BUN/Creatinine Ratio 18 Glucose 132 H Calculated Osmolality 296 Calcium 9.6 Total Bilirubin 0.6 AST 14 ALT 23 Alkaline Phosphatase 60 Serum Total Protein 6.9 Albumin 4.7 Globulin 2.2 L Albumin/Globulin Ratio 2.1 Valproic Acid 59 Assessment and Plan (1) Schizoaffective disorder Current visit: Yes Status: Acute Plan: Continue hospitalization, Close observation, Encourage participation in unit milieu, Monitor sleep, Monitor appetite Risks, benefits, side effects, alternatives discussed w/pt: Yes (SHAHBAZ and CBC Normal. Increase Zyprexa to 15 mg po bid targeting Psychosis) Patient agreeable to treatment: No (Now court ordered by probate court) Qualifiers: Schizoaffective disorder type: bipolar Qualified Code(s): F25.0 - Schizoaffective disorder, bipolar type Consult Discharge Plan - Plan Referrals: NONE,PCP [Primary Care Provider] - Psychiatry Exam - Constitutional Vitals: Temp Pulse Resp BP Pulse Ox 97.4 F L 84 16 106/70 99 03/01/19 09:00 03/01/19 09:00 03/01/19 09:00 03/01/19 09:00 03/01/19 09:00 General appearance: age & developmentally appropriate, well-groomed - Musculoskeletal Gait: slow Station: stooped - Psychiatric Patient Orientation: Yes Person, Yes Place Level of alertness: Follows commands Behavior: suspicious, withdrawn Psychomotor activity: Slowed Eye Contact: Diverts Contact Mood Description: Depressed Affect description: congruent with mood Speech Volume: Soft/Quiet Speech pattern: limited Language & Vocabulary: limited Thought Process: Thought Blocking, Slowed Thinking Thought Content: Yes Suicidal ideation (denies) Perceptual Disturbances: Yes Reacting to internal stimuli, Yes Auditory hallucinations Attention Span Ability: Unable to Focus Patient Reliability: Not Reliable Historian Fund of knowledge: Yes average Intelligence Estimate: Average Judgment: Limited Insight: Minimal
[2019-03-01] MEDS: traZODone 50 MG TABLET PO PRN (21:35)
[2019-03-01] MEDS: hydrOXYzine pamoate 25 MG CAPSULE PO PRN (21:36)
[2019-03-02] MEDS: OLANZapine 10 MG TAB.RAPDIS PO SCH ×2 (09:01→20:19)
[2019-03-02] MEDS: *HR* LORazepam 1 MG TABLET PO SCH ×3 (09:01→20:19)
[2019-03-02] MEDS: Divalproex (24 HR) 500 MG TABLET PO SCH ×2 (09:02→20:19)
[2019-03-02] MEDS: Nicotine 14 MG PATCH.TD24 TD SCH (09:04)
--- NOTE | 2019-03-02 10:22 | Psychiatry Progress Note ---
Date of Encounter: 03/02/19 Time of Encounter: 10:40 Subjective Interval history: Mr. Doty was sitting comfortably in the [facility] common room. He was willing to speak with me. He stated he wanted his zyprexa dose lowered due to it making him overly tired during the day. He states he had been feeling agitated but no longer does. He denies any suicidal or homicidal ideation. Denies any visual or auditory hallucinations. He states he just feels overly tired and that he is "eatign too much" but would not explain why he felt this way. He abruptly stopped the conversation with thank you for helping me and stopped answering any questions. Tends to slowly pace the unit and does not make eye contact with those around him when he is doing this, does not have much interaction with the staff. Review of Systems Psychiatric: Reports: suicidal ideation (denies today positive previously), auditory hallucinations (denies today but positive previously), visual hallucinations (denies today but positive previously), confusion (does not know why he is here ), difficulty concentrating Results - Vital Signs Vital Signs: Temp Pulse Resp BP Pulse Ox 97.8 F 71 16 114/75 100 03/01/19 21:00 03/01/19 21:00 03/01/19 21:00 03/01/19 21:00 03/01/19 21:00 - Labs Labs: Laboratory Results - last 24 hr 03/01/19 09:14 Sodium 141 Potassium 4.0 Chloride 99 Carbon Dioxide 34 H BUN 20 Creatinine 1.12 Est GFR ( Amer) > 60 Est GFR (Non-Af Amer) > 60 BUN/Creatinine Ratio 18 Glucose 132 H Calculated Osmolality 296 Calcium 9.6 Total Bilirubin 0.6 AST 14 ALT 23 Alkaline Phosphatase 60 Serum Total Protein 6.9 Albumin 4.7 Globulin 2.2 L Albumin/Globulin Ratio 2.1 Valproic Acid 59 Assessment and Plan (1) Schizoaffective disorder Current visit: Yes Status: Acute Plan: Continue hospitalization, Close observation, Encourage participation in unit milieu, Monitor sleep Additional Plan: Continue current medications dosages Risks, benefits, side effects, alternatives discussed w/pt: Yes (SHAHBAZ and CBC Normal. Increase Zyprexa to 15 mg po bid targeting Psychosis) Patient agreeable to treatment: No (Now court ordered by probate court) Qualifiers: Schizoaffective disorder type: bipolar Qualified Code(s): F25.0 - Schizoa ffective disorder, bipolar type Consult Discharge Plan - Plan Referrals: NONE,PCP [Primary Care Provider] - - Attending Attestation I examined this patient and my medical decision-making was reviewed with the Resident Physician. I agree with the documented findings, disposition and treat ment plan as described except to the extent set forth below. Patient continues to be very psychotic with significant thought blocking unable to care for himself. He does not seem to be improving with the Zyprexa. Also we now have a court order and given his history of noncompliance in the community at makes more sense to get him on a medication that comes in a long- acting injectable form. We will decrease Zyprexa to 10 mg twice a day and add in Workman 3 mg daily. Once he has demonstrated he can tolerate the Invega we will look at getting him on a sustainna injection. Psychiatry Exam - Constitutional Vitals: Temp Pulse Resp BP Pulse Ox 97.8 F 71 16 114/75 100 03/01/19 21:00 03/01/19 21:00 03/01/19 21:00 03/01/19 21:00 03/01/19 21:00 General appearance: disheveled - Musculoskeletal Gait: slow Station: stooped, slouched Strength & Tone: normal for patient - Psychiatric Patient Orientation: Yes Person, Yes Place Level of alertness: Alert Behavior: suspicious, distractible, withdrawn Psychomotor activity: Slowed Eye Contact: No Eye Contact Mood Description: Depressed Patient description of mood: "tired" Affect description: congruent with mood Speech Volume: Soft/Quiet, No variation in volume Speech pattern: slowed Language & Vocabulary: limited Thought Process: Slowed Thinking Thought Content: Yes Suicidal ideation (denies), Yes Homicidal ideation (denies) Perceptual Disturbances: Yes Reacting to internal stimuli, Yes Auditory hallucinations (denies), Yes Visual hallucinations (denies) Attention Span Ability: Unable to Sustain Attention Memory Description: Immediate Intact Patient Reliability: Not Reliable Historian Fund of knowledge: Yes average, Yes below average Intelligence Estimate: Average Judgment: Limited Insight: Minimal
[2019-03-02] MEDS: traZODone 50 MG TABLET PO PRN (20:19)
[2019-03-02] MEDS: hydrOXYzine pamoate 25 MG CAPSULE PO PRN (20:19)
[2019-03-03] MEDS: *HR* LORazepam 1 MG TABLET PO SCH ×3 (08:29→21:14)
[2019-03-03] MEDS: OLANZapine 10 MG TAB.RAPDIS PO SCH (08:29)
[2019-03-03] MEDS: Divalproex (24 HR) 500 MG TABLET PO SCH ×2 (08:29→21:14)
[2019-03-03] MEDS: Nicotine 14 MG PATCH.TD24 TD SCH (08:30)
--- NOTE | 2019-03-03 11:02 | Psychiatry Progress Note ---
Date of Encounter: 03/03/19 Time of Encounter: 09:30 Subjective Interval history: Patient continues to be very psychotic. He has significant thought blocking. He is responding to internal stimuli. Says God talks to him. He says he needs to be punished. Review of Systems Psychiatric: Reports: suicidal ideation (denies today positive previously), auditory hallucinations (denies today but positive previously), visual hallucinations (denies today but positive previously), confusion (does not know why he is here ), difficulty concentrating Results - Vital Signs Vital Signs: Temp Pulse Resp BP Pulse Ox 97.6 F 79 18 114/76 65 03/03/19 09:00 03/03/19 09:00 03/03/19 09:00 03/03/19 09:00 03/02/19 21:00 Assessment and Plan (1) Schizoaffective disorder Current visit: Yes Status: Acute Plan: Continue hospitalization, Close observation, Suicide Precautions per unit protocol, Encourage participation in unit milieu, Group Therapy, Monitor sleep, Monitor appetite Additional Plan: continue cross-titration, decrease zyprexa ro 5mg BID, increase invega to 6mg daily, plan for sustenna 234mg Risks, benefits, side effects, alternatives discussed w/pt: Yes (SHAHBAZ and CBC Normal. Increase Zyprexa to 15 mg po bid targeting Psychosis) Patient agreeable to treatment: No (Now court ordered by probate court) Qualifiers: Schizoaffective disorder type: bipolar Qualified Code(s): F25.0 - Schizoaffective disorder, bipolar type Consult Discharge Plan - [facility]10/19 1:00 pm (The above appointment is with Dain Cruz for counseling. YOU WILL ALSO SEE DR. ARIZMENDI ON 03/14/2019 AT 3:20pm FOR MEDICATION MANAGEMENT.) Psychiatry Exam - Constitutional Vitals: Temp Pulse Resp BP Pulse Ox 97.6 F 79 18 114/76 65 03/03/19 09:00 03/03/19 09:00 03/03/19 09:00 03/03/19 09:00 03/02/19 21:00 General appearance: disheveled - Musculoskeletal Gait: slow Station: stooped Strength & Tone: mild weakness - Psychiatric Patient Orientation: Yes Person, Yes Time, Yes Place Level of alertness: Alert Behavior: guarded, suspicious, withdrawn Psychomotor activity: Slowed Eye Contact: Minimal Contact Mood Description: Depressed Patient description of mood: "I don't know" Affect description: flat Speech Volume: Whispering Speech pattern: impoverished Language & Vocabulary: limited Thought Process: Thought Blocking Thought Content: Yes Suicidal ideation, Yes Paranoid delusion Perceptual Disturbances: Yes Auditory hallucinations, Yes Visual hallucinations Attention Span Ability: Unable to Focus, Unable to Sustain Attention Memory Description: Immediate Impaired Patient Reliability: Questionable Historian Fund of knowledge: Yes below average Intelligence Estimate: Average Judgment: Poor Insight: None
[2019-03-03] MEDS: OLANZapine 5 MG TAB.RAPDIS PO SCH (21:14)
[2019-03-03] MEDS: traZODone 50 MG TABLET PO PRN (22:49)
[2019-03-04] MEDS: *HR* LORazepam 1 MG TABLET PO SCH ×3 (08:55→20:35)
[2019-03-04] MEDS: Divalproex (24 HR) 500 MG TABLET PO SCH ×2 (08:55→20:35)
[2019-03-04] MEDS: Nicotine 14 MG PATCH.TD24 TD SCH (08:55)
[2019-03-04] MEDS: OLANZapine 5 MG TAB.RAPDIS PO SCH (08:55)
[2019-03-04] MEDS ORDERED: Paliperidone Palmitate [Invega Sustenna] 234 MG IM SCH (09:00)
--- NOTE | 2019-03-04 11:23 | Psychiatry Progress Note ---
Date of Encounter: 03/04/19 Time of Encounter: 11:20 Subjective Interval history: Patient has tolerated the and melanie without any side effects. He is also doing okay with titrating off the Zyprexa. He should get his Invega Sustenna 234 mg once today. He continues to have auditory hallucinations and to be responding to internal stimuli. He is very bizarre. For instance today he walked into my office numerous times including several them caring a half eaten muffin and continue to offer it to me. He has been tearful and crying. Saying that God is angry with him. He is not caring for his ADLs and smells of urine. Review of Systems Psychiatric: Reports: suicidal ideation (denies today positive previously), auditory hallucinations (denies today but positive previously), visual hallucinations (denies today but positive previously), confusion (does not know why he is here ), difficulty concentrating Results - Vital Signs Vital Signs: Temp Pulse Resp BP Pulse Ox 97.2 F L 79 18 115/78 100 03/04/19 09:00 03/04/19 09:00 03/04/19 09:00 03/04/19 09:00 03/04/19 09:00 Assessment and Plan (1) Schizoaffective disorder Current visit: Yes Status: Acute Plan: Continue hospitalization, Close observation, Suicide Precautions per unit protocol, Encourage participation in unit milieu, Group Therapy, Monitor sleep, Monitor appetite Additional Plan: We will discontinue Zyprexa. Invega Sustenna 234 mg a day. Once he gets this will look to stop the oral and Workman tomorrow and get him a second in Workman shot after 4 or so days. Encourage group attendance. Risks, benefits, side effects, alternatives discussed w/pt: Yes (SHAHBAZ and CBC Normal. Increase Zyprexa to 15 mg po bid targeting Psychosis) Patient agreeable to treatment: No (Now court ordered by probate court) Qualifiers: Schizoaffective disorder type: bipolar Qualified Code(s): F25.0 - Schizoaffective disorder, bipolar type Consult Discharge Plan - Plan Referrals: [facility] [Outside] - 03/10/19 1:00 pm (The above appointment is with Dain Cruz for counseling. YOU WILL ALSO SEE DR. ARIZMENDI ON 03/14/2019 AT 3:20pm FOR MEDICATION MANAGEMENT.) Psychiatry Exam - Constitutional Vitals: Temp Pulse Resp BP Pulse Ox 97.2 F L 79 18 115/78 100 03/04/19 09:00 03/04/19 09:00 03/04/19 09:00 03/04/19 09:00 03/04/19 09:00 General appearance: disheveled, malodorous, thin - Musculoskeletal Gait: slow Station: stooped Strength & Tone: mild weakness - Psychiatric Patient Orientation: Yes Person, Yes Time, Yes Place, Yes Circumstance Level of alertness: Alert Behavior: suspicious, withdrawn Psychomotor activity: Slowed Eye Contact: Minimal Contact Mood Description: Depressed Patient description of mood: Scared Affect description: flat Speech Volume: Soft/Quiet Speech pattern: slowed Language & Vocabulary: consistent with education Thought Process: Thought Blocking Thought Content: Yes Suicidal ideation, No Homicidal ideation, Yes Paranoid delusion Perceptual Disturbances: Yes Auditory hallucinations, Yes Visual hallucinations Attention Span Ability: Unable to Focus, Unable to Sustain Attention Memory Description: Immediate Impaired, Recent Intact, Remote Intact Patient Reliability: Questionable Historian Fund of knowledge: Yes average Intelligence Estimate: Average Judgment: Limited Insight: Minimal
[2019-03-04] MEDS: traZODone 50 MG TABLET PO PRN (20:35)
[2019-03-05] MEDS: Nicotine 14 MG PATCH.TD24 TD SCH (08:44)
[2019-03-05] MEDS: Divalproex (24 HR) 500 MG TABLET PO SCH ×2 (08:44→20:21)
--- NOTE | 2019-03-05 09:58 | Psychiatry Progress Note ---
Date of Encounter: 03/05/19 Time of Encounter: 08:10 Subjective Interval history: Patient tolerated the Invega Sustenna injection yesterday. He woke at the second injection Wednesday or Wednesday. He continues to have significant thought blocking and needed encouragement to eat and care for ADLs. He still has the smell of urine. He continues to be intrusive and walk up to people and either stare at them or make nonsensical statements. He continues to respond to internal stimuli and talk about God wanting him to kill himself. Review of Systems Psychiatric: Reports: suicidal ideation, auditory hallucinations, visual hallucinations, confusion (does not know why he is here ), difficulty concentrating Results - Vital Signs Vital Signs: Temp Pulse Resp BP Pulse Ox 97.3 F L 72 14 108/73 100 03/05/19 09:00 03/05/19 09:00 03/05/19 09:00 03/05/19 09:00 03/05/19 09:00 Assessment and Plan (1) Schizoaffective disorder Current visit: Yes Status: Acute Plan: Continue hospitalization, Close observation, Suicide Precautions per unit protocol, Encourage participation in unit milieu, Group Therapy, Monitor sleep, Monitor appetite Additional Plan: We will continue oral invega a for now. Will plan for next Invega Sustenna shot 156 mg either Wednesday or Wednesday and at that time will discontinue oral invaega. Continue. Encourage group attendance. Risks, benefits, side effects, alternatives discussed w/pt: Yes (SHAHBAZ and CBC Normal. Increase Zyprexa to 15 mg po bid targeting Psychosis) Patient agreeable to treatment: Yes (Is on court order but patient is also agreeable with the injection.) Qualifiers: Schizoaffective disorder type: bipolar Qualified Code(s): F25.0 - Schizoaffective disorder, bipolar type Consult Discharge Plan - Plan Referrals: [facility] [Outside] - 03/10/19 1:00 pm (The above appointment is with Dain Cruz for counseling. YOU WILL ALSO SEE DR. ARIZMENDI ON 03/14/2019 AT 3:20pm FOR MEDICATION MANAGEMENT.) Psychiatry Exam - Constitutional Vitals: Temp Pulse Resp BP Pulse Ox 97.3 F L 72 14 108/73 100 03/05/19 09:00 03/05/19 09:00 03/05/19 09:00 03/05/19 09:00 03/05/19 09:00 General appearance: disheveled, malodorous - Musculoskeletal Gait: slow Station: stooped Strength & Tone: mild weakness - Psychiatric Patient Orientation: Yes Person, Yes Time, Yes Place Level of alertness: Alert Behavior: guarded, suspicious, withdrawn Psychomotor activity: Slowed Eye Contact: Fleeting Contact Mood Description: Depressed Patient description of mood: "I do not know" Affect description: flat Speech Volume: Soft/Quiet Speech pattern: slowed Language & Vocabulary: limited Thought Process: Thought Blocking Thought Content: Yes Suicidal ideation, Yes Paranoid delusion Perceptual Disturbances: Yes Auditory hallucinations Attention Span Ability: Unable to Focus, Unable to Sustain Attention Memory Description: Immediate Impaired, Recent Impaired, Remote Impaired Patient Reliability: Not Reliable Historian Fund of knowledge: Yes below average Intelligence Estimate: Below Average Judgment: Limited Insight: Minimal
[2019-03-05] MEDS: hydrOXYzine pamoate 25 MG CAPSULE PO PRN (20:21)
[2019-03-05] MEDS: traZODone 50 MG TABLET PO PRN (20:21)
[2019-03-06] MEDS: Nicotine 14 MG PATCH.TD24 TD SCH (09:14)
[2019-03-06] MEDS: Divalproex (24 HR) 500 MG TABLET PO SCH ×2 (09:14→20:31)
--- NOTE | 2019-03-06 09:35 | Psychiatry Progress Note ---
Date of Encounter: 03/06/19 Time of Encounter: 09:32 Subjective Interval history: Client known to this designer writer from earlier in his stay. He has had a prolonged hospital course with only minimal improvement. Did not respond favorably to high dose Zyprexa so switched to Invega. Scheduled to receive the second Sustenna injection tomorrow. Current plan is to discharge him home tomorrow after his injection. Will give him time to improve with the medication at home. If current meds do not sustain him will likely need to look at Clozapine. Client has been denying SI/HI. No dangerous behaviors on the unit. Very much wants discharged. Medications will take time to fully work but client will hopefully continue to improve on an outpatient basis. Lives with family and has support. Review of Systems Constitutional: Denies: fever, chills, weakness, weight change Eyes: Denies: eye pain, vision change Ears, Nose, Throat: Denies: ear pain, throat pain, dental pain, hearing loss, congestion Cardiovascular: Denies: chest pain, palpitations, dyspnea on exertion Respiratory: Denies: cough, dyspnea, wheezes Gastrointestinal: Denies: abdominal pain, nausea, vomiting, diarrhea, constipation Musculoskeletal: Denies: joint swelling, joint pain Neurological: Denies: headache, weakness, numbness, memory loss Psychiatric: Reports: suicidal ideation, auditory hallucinations, visual hallucinations, confusion (does not know why he is here ), difficulty concentrating Results - Vital Signs Vital Signs: Temp Pulse Resp BP Pulse Ox 97.2 F L 86 16 101/66 98 03/06/19 09:00 03/06/19 09:00 03/06/19 09:00 03/06/19 09:00 03/06/19 09:00 Assessment and Plan (1) Schizoaffective disorder Current visit: Yes Status: Acute Plan: Continue hospitalization, Close observation, Suicide Precautions per unit protocol, Encourage participation in unit milieu, Group Therapy, Monitor sleep, Monitor appetite Risks, benefits, side effects, alternatives discussed w/pt: Yes (SHAHBAZ and CBC Normal. Increase Zyprexa to 15 mg po bid targeting Psychosis) Patient agreeable to treatment: Yes (Is on court order but patient is also agreeable with the injection.) Qualifiers: Schizoaffective disorder type: bipolar Qualified Code(s): F25.0 - Schizoaffective disorder, bipolar type Consult Discharge Plan - Plan Referrals: [facility] [Outside] - 03/10/19 1:00 pm (The above appointment is with Dain Cruz for counseling. YOU WILL ALSO SEE DR. ARIZMENDI ON 03/14/2019 AT 3:20pm FOR MEDICATION MANAGEMENT.) Psychiatry Exam - Constitutional Vitals: Temp Pulse Resp BP Pulse Ox 97.2 F L 86 16 101/66 98 03/06/19 09:00 03/06/19 09:00 03/06/19 09:00 03/06/19 09:00 03/06/19 09:00 General appearance: disheveled - Musculoskeletal Gait: slow Station: stooped Strength & Tone: normal for patient - Psychiatric Patient Orientation: Yes Person, Yes Time, Yes Place Level of alertness: Alert Behavior: calm, cooperative Psychomotor activity: Slowed Eye Contact: Minimal Contact Mood Description: Depressed Affect description: blunted Speech Volume: Soft/Quiet Speech pattern: normal rate, normal rhythm, normal tone, fluent, spontaneous Language & Vocabulary: consistent with education Thought Process: Thought Blocking Thought Content: No Suicidal ideation, No Homicidal ideation, No Overt delusions Perceptual Disturbances: No Auditory hallucinations, No Visual hallucinations Attention Span Ability: Capable of Focused Attention Memory Description: Grossly Intact Patient Reliability: Questionable Historian Fund of knowledge: Yes abstraction ability Intelligence Estimate: Average Judgment: Fair Insight: Partial
[2019-03-06] MEDS: traZODone 50 MG TABLET PO PRN (20:31)
[2019-03-07] MEDS: Divalproex (24 HR) 500 MG TABLET PO SCH (08:49)
[2019-03-07] MEDS: Nicotine 14 MG PATCH.TD24 TD SCH (08:50)
[2019-03-07 09:11] VITALS: BP 99/77
--- NOTE | 2019-03-07 10:18 | Discharge Summary ---
Date of Encounter: 03/07/19 Time of Encounter: 10:12 Diagnosis - Discharge Diagnosis (1) Schizoaffective disorder Status: Acute Qualifiers: Schizoaffective disorder type: bipolar Qualified Code(s): F25.0 - Schizoaffective disorder, bipolar type Medications - Discharge Medications Prescriptions: Divalproex (24 HR) [Depakote ER (24 HR)] 500 mg PO BID #60 tab.er.24h Transmission Status: Pending to [place] [id number] Paliperidone [Invega] 6 mg PO HS #30 tab.er.24 Transmission Status: Pending to [facility] [id number] Divalproex (24 HR) [Depakote ER (24 HR)] 500 mg PO BID #60 tab.er.24h 03/07/19 [Rx] Paliperidone [Invega] 6 mg PO HS #30 tab.er.24 03/07/19 [Rx] Patient Taking Own Medication 1 each IM QMONTH #0 each 03/07/19 [Rx] Allergy/AdvReac Type Severity Reaction Status Date / Time acetaminophen [From Percocet] AdvReac Itching Verified 02/17/19 15:17 oxycodone [From Percocet] AdvReac Itching Verified 02/17/19 15:17 Results Procedures and tests throughout hospitalization: Completed Lab Orders Category Date Time Status Chem 13 [Comprehensive Metabolic Panel] AM 0400 Lab 03/01/19 09:14 Completed Complete Blood Count [HEME] AM 0400 Lab 03/01/19 09:14 Completed Hgb A1C Routine Lab 02/18/19 10:03 Completed Thyroid Stimulating Hormone Routine Lab 02/18/19 10:03 Completed Treponema Pallidum Ab Routine Lab 02/18/19 10:03 Completed Valproate AM 0400 Lab 03/01/19 09:14 Completed Valproate Routine Lab 02/19/19 11:28 Completed Provider Date of admission: 02/17/19 20:55 Primary care physician: PCP NONE Discharging clinician: Sofi Padilla Psychiatry Exam - Constitutional Vitals: Temp Pulse Resp BP Pulse Ox 98.1 F 74 16 99/77 99 03/07/19 09:00 03/07/19 09:00 03/07/19 09:00 03/07/19 09:00 03/07/19 09:00 General appearance: disheveled - Musculoskeletal Gait: slow Station: stooped Strength & Tone: normal for patient - Psychiatric Patient Orientation: Yes Person, Yes Time, Yes Place Level of alertness: Alert Behavior: calm, cooperative Psychomotor activity: Slowed Eye Contact: Minimal Contact Mood Description: Depressed Affect description: blunted Speech Volume: Soft/Quiet Speech pattern: limited Language & Vocabulary: consistent with education Thought Process: Thought Blocking Thought Content: No Suicidal ideation, No Homicidal ideation, No Overt delusions Perceptual Disturbances: Yes Reacting to internal stimuli Attention Span Ability: Capable of Focused Attention Memory Description: Grossly Intact Patient Reliability: Questionable Historian Fund of knowledge: Yes abstraction ability, Yes aware of current events Intelligence Estimate: Average Judgment: Limited Insight: Partial Hospital Course Hospital course: Mr. Murillo is a 28 year old male who was admitted for psychosis. Client has been very ill this admission. Multiple meds have been tried with only moderate clinical improvement. Client was given high dose Zyprexa with not much change. Switched to Invega and placed on the Sustenna injection. Client will receive his second shot today prior to discharge. He is still taking a small oral dose of Invega and this can likely be discontinued at his first outpatient follow-up appointment. Client has consistently denied SI, intent, or plan. Remains psychotic with thought blocking and delayed speech. However, behaviors have been appropriate. Pleasant to staff and peers. Needs prompts to shower and maintain ADLs but client lives with his family and they should be able to assist with this. Client has consistently said he misses is family and he has wanted to go home for a long time. Hospital course has been prolonged due to his slow progress. Hopefully he will continue to improve once the Sustenna injections take hold but if he continues to struggle clinically he may need a trial of Clozapine. Outpatient follow-up has been arranged for client near his family's home and client's mother has confirmed she has transportation to get him to his appointments. Total time spent with client greater than 30 minutes. Patient was educated of his diagnosis and the risks, benefits, and side effects of this treatment and alternative treatment options and was monitored for responsiveness and side effects. Mood, anxiety, sleep, appetite, and interest improved, as did future orientation. Self-harm thoughts subsided, thinking cleared, psychosis resolved, and mood stabilized. Patient was able to attend both individual and group therapy sessions as well as meeting with the psychiatrist daily and urged to discuss any medication or treatment issues or other concerns. The patient was educated primarily by verbal means about their diagnosis and manifestations in their life. The option for treatment including group and individual therapy programming was offered to the patient in the use of medications with all their potential risks, benefits, and side effects were discussed with the patient at length. The patient was given the opportunity to ask questions and was noted to participate in the treatment in the planning process. The patient felt ready and eager to be discharged from the inpatient psychiatric unit to continue on with treatment as an outpatient. The patient agreed that he is safe for this disposition. The patient was considered to be able to participate in informed consent and decision making with respect to medical, legal, and financial issues of the time of discharge. At the time of discharge the patient adamantly denied any concerns for lethality including suicidal or homicidal thoughts ideations or plans and was future oriented toward ongoing mental health care, medical follow-up and sobriety. - Time Spent with Patient Total time spent providing and/or coordinating discharge services: Greater than 30 minutes Assessment and Plan - Patient/Caregiver Discharge Instructions Activity: resume usual activities as tolerated Diet: regular diet - Follow up Plan Follow up with: Sarah Chandra [Outside] - 03/10/19 1:00 pm (The above appointment is with Dain Cruz for counseling. YOU WILL ALSO SEE DR. ARIZMENDI ON 03/14/2019 AT 3:20pm FOR MEDICATION MANAGEMENT.) Functional capacity at discharge: independent ambulation Overall status at discharge: Stable Disposition: Home, Self-Care Quality - Multiple Antipsychotics Patient discharged on 2 or more antipsychotic medications: No Procedures - Procedures Procedures: Medication Management, Crisis Stabilization, Supportive Therapy, Group Therapy
[2019-03-07] MEDS ORDERED: Patient Taking Own Medication 1 EACH IM SCH (11:00)
== END 2019-03-07 13:15 | disposition home or self-care (01) | DRG 750 ==
LOC: EMEROOARM 17:49 → SUATTDRO 20:55 → 1ANU 20:55
PROVIDERS: ADMIT Psychiatry & Neurology Psychiatry; ATTEND Psychiatry & Neurology Psychiatry

== ENCOUNTER 2019-04-07 13:11 | Inpatient (IN) ==
[2019-04-07 14:17] LABS: Bilirubin,Urine Negative (Negative); Blood,Urine Negative (Negative); Clarity,Urine Clear (Clear); Color,Urine Yellow (Yellow); Glucose,Urine (UA) Normal (Normal); Ketones,Urine Negative (Negative); Leukocyte Esterase,Urine Negative (Negative); Nitrite,Urine Negative (Negative); Protein,Urine Negative (Neg-Trace); Specific Gravity,Urine 1.005 (1.010-1.025); Urobilinogen,Urine Normal (Normal)
[2019-04-07 14:32] LABS: Amphetamine Screen,Urine Negative ng/mL (Cutoff=1000); Barbiturate Screen,Urine Negative ng/mL (Cutoff=200); Benzodiazepines Screen,Urine Negative ng/mL (Cutoff=200); Cannabinoid Screen,Urine Negative ng/mL (Cutoff = 50); Cocaine Screen,Urine Negative ng/mL (Cutoff= 300); Opiate Screen,Urine Negative ng/mL (Cutoff=300); Phencyclidine Screen,Urine Negative ng/mL (Cutoff=25)
[2019-04-07 14:52] LABS: Acetaminophen < 10 mcg/mL (10-20); BUN/Creatinine Ratio 10 (6-26); Blood Urea Nitrogen 9 mg/dL (6-20); Calcium 9.3 mg/dL (8.6-10.3); Carbon Dioxide 28 mEq/L (23-29); Chloride 105 mEq/L (98-107); Ethanol < 10 mg/dL (Less than 10); Glucose 75 mg/dL (70-105); Osmolality,Calculated 289 (280-300); Potassium 3.7 mEq/L (3.5-5.1); Salicylate < 2.5 mg/dL (15.0-30.0); Sodium 141 mEq/L (136-145); eGFR For African Americans > 60 (> 60); eGFR For Non-African Americans > 60 (> 60)
[2019-04-07 15:01] LABS: Basophils % 0.3 %; Eosinophils # 0.1 K/mcL (0.0-0.6); Eosinophils % 1.3 %; Hematocrit 45.2 % (37.5-50.1); Immature Granulocytes % 0.2 % (0-4); Lymphocytes # 1.4 K/mcL (0.6-4.6); Lymphocytes % 22.4 %; Mean Corpuscular HGB Conc 35.4 g/dL (31.6-35.5); Mean Corpuscular Hemoglobin 33.3 pg (28.0-33.3); Mean Platelet Volume 11.1 fL (9.4-12.4); Monocytes # 0.4 K/mcL (0.0-1.3); Neutrophils # 4.3 K/mcL (1.6-8.9); Platelet Count 200 K/mcL (140-400); Red Blood Count 4.81 M/mcL (4.19-5.50); Red Cell Distribution Width 11.3 % (11.5-14.5); Segmented Neutrophils % 68.8 %; White Blood Count 6.3 K/mcL (4.3-11.1)
[2019-04-07] MEDS ORDERED: Haloperidol Lactate 5 MG/ML VIAL IM PRN (16:32)
[2019-04-07] MEDS ORDERED: *HR* LORazepam 2 MG/ML VIAL IM PRN (16:32)
[2019-04-07] MEDS ORDERED: MOM Conc 10 ML UD.LIQ PO PRN (16:32)
[2019-04-07] MEDS ORDERED: Mag Hydrox/Al Hydrox/Simeth 30 ML UDC PO PRN (16:32)
[2019-04-07] MEDS ORDERED: Ibuprofen 400 MG TABLET PO PRN (16:32)
[2019-04-07] MEDS: Nicotine 21 MG PATCH.TD24 TD SCH (17:12)
[2019-04-07] MEDS: *HR* LORazepam 1 MG TABLET PO PRN (17:13)
[2019-04-08] MEDS: Nicotine 21 MG PATCH.TD24 TD SCH (09:25)
[2019-04-08] MEDS: Divalproex (12 HR) 500 MG TABLET PO SCH (20:29)
[2019-04-09] MEDS: Divalproex (12 HR) 500 MG TABLET PO SCH ×2 (08:55→21:10)
[2019-04-09] MEDS: Nicotine 21 MG PATCH.TD24 TD SCH (08:55)
[2019-04-10] MEDS: Nicotine 21 MG PATCH.TD24 TD SCH (08:31)
[2019-04-10] MEDS: Divalproex (12 HR) 500 MG TABLET PO SCH ×2 (08:31→21:38)
[2019-04-11] MEDS: Divalproex (12 HR) 500 MG TABLET PO SCH ×2 (08:44→21:28)
[2019-04-11] MEDS: Nicotine 21 MG PATCH.TD24 TD SCH (08:44)
[2019-04-11] MEDS ORDERED: (Paliperidone Palmitate [Invega Sustenna] 156 MG) IM SCH (10:45)
[2019-04-12] MEDS: Divalproex (12 HR) 500 MG TABLET PO SCH ×2 (08:32→21:07)
[2019-04-12] MEDS: Nicotine 21 MG PATCH.TD24 TD SCH (08:33)
[2019-04-12] MEDS: hydrOXYzine pamoate 25 MG CAPSULE PO PRN (17:59)
[2019-04-13] MEDS: Nicotine 21 MG PATCH.TD24 TD SCH (09:13)
[2019-04-13] MEDS: Divalproex (12 HR) 500 MG TABLET PO SCH ×2 (09:13→21:58)
[2019-04-13] MEDS: hydrOXYzine pamoate 25 MG CAPSULE PO PRN (18:18)
[2019-04-13] MEDS: *HR* LORazepam 1 MG TABLET PO PRN (18:18)
[2019-04-14] MEDS: Divalproex (12 HR) 500 MG TABLET PO SCH (08:55)
[2019-04-14] MEDS: Nicotine 21 MG PATCH.TD24 TD SCH (08:55)
[2019-04-14] MEDS: *HR* LORazepam 1 MG TABLET PO PRN (12:31)
[2019-04-15] MEDS: Divalproex (12 HR) 500 MG TABLET PO SCH ×3 (00:02→21:55)
[2019-04-15] MEDS: Nicotine 21 MG PATCH.TD24 TD SCH (08:28)
[2019-04-16] MEDS: Divalproex (12 HR) 500 MG TABLET PO SCH ×2 (08:40→22:46)
[2019-04-16] MEDS: Nicotine 21 MG PATCH.TD24 TD SCH (08:41)
[2019-04-17] MEDS: Nicotine 21 MG PATCH.TD24 TD SCH (09:40)
[2019-04-17] MEDS: Divalproex (12 HR) 500 MG TABLET PO SCH ×2 (09:40→20:31)
[2019-04-18] MEDS: Divalproex (12 HR) 500 MG TABLET PO SCH ×2 (08:57→20:38)
[2019-04-18] MEDS: Nicotine 21 MG PATCH.TD24 TD SCH (08:58)
[2019-04-18] MEDS: hydrOXYzine pamoate 25 MG CAPSULE PO PRN (20:38)
[2019-04-19] MEDS: Divalproex (12 HR) 500 MG TABLET PO SCH ×2 (09:16→20:24)
[2019-04-19] MEDS: Nicotine 21 MG PATCH.TD24 TD SCH (09:16)
[2019-04-19] MEDS: hydrOXYzine pamoate 25 MG CAPSULE PO PRN (20:24)
[2019-04-20] MEDS: Nicotine 21 MG PATCH.TD24 TD SCH (09:13)
[2019-04-20] MEDS: Divalproex (12 HR) 500 MG TABLET PO SCH ×2 (09:13→20:53)
[2019-04-20] MEDS: hydrOXYzine pamoate 25 MG CAPSULE PO PRN (20:53)
[2019-04-21] MEDS: Nicotine 21 MG PATCH.TD24 TD SCH (09:04)
[2019-04-21] MEDS: Divalproex (12 HR) 500 MG TABLET PO SCH ×2 (09:04→20:29)
[2019-04-21] MEDS: hydrOXYzine pamoate 25 MG CAPSULE PO PRN (11:25)
[2019-04-22] MEDS: Divalproex (12 HR) 500 MG TABLET PO SCH ×2 (08:33→21:20)
[2019-04-22] MEDS: Nicotine 21 MG PATCH.TD24 TD SCH (08:35)
[2019-04-23] MEDS: Divalproex (12 HR) 500 MG TABLET PO SCH (07:57)
[2019-04-23] MEDS: Nicotine 21 MG PATCH.TD24 TD SCH (08:02)
[2019-04-24] MEDS: Divalproex (12 HR) 500 MG TABLET PO SCH ×3 (00:29→20:48)
[2019-04-24] MEDS: Nicotine 21 MG PATCH.TD24 TD SCH (10:08)
[2019-04-24] MEDS: hydrOXYzine pamoate 25 MG CAPSULE PO PRN (20:48)
[2019-04-25] MEDS: Divalproex (12 HR) 500 MG TABLET PO SCH ×2 (09:05→22:24)
[2019-04-25] MEDS: Nicotine 21 MG PATCH.TD24 TD SCH (09:06)
[2019-04-25] MEDS ORDERED: *HR* LORazepam 1 MG TABLET PO PRN (14:01)
[2019-04-26] MEDS: Divalproex (12 HR) 500 MG TABLET PO SCH (08:42)
[2019-04-26 08:47] VITALS: BP 103/71
[2019-04-26] MEDS: Nicotine 21 MG PATCH.TD24 TD SCH (08:49)
[2019-04-26] MEDS ORDERED: FLU Vac QV 19-20 (6Month+)/PF 0.5 ML SYRINGE IM ONE (09:22)
[2019-04-26] MEDS ORDERED: Patient Taking Own Medication 1 EACH IM SCH (10:15)
== END 2019-04-26 10:50 | disposition home or self-care (01) | DRG 750 ==
LOC: EMEROOARM 13:11 → SUATTDRO 16:30 → 1ANU 16:30
PROVIDERS: ADMIT Psychiatry & Neurology Psychiatry; ATTEND Psychiatry & Neurology Psychiatry

== ENCOUNTER 2019-06-20 21:03 | Observation (INO) ==
[2019-06-20] MEDS ORDERED: MOM Conc 10 ML UD.LIQ PO PRN (22:12)
[2019-06-20] MEDS ORDERED: *HR* LORazepam 1 MG TABLET PO PRN (22:12)
[2019-06-20] MEDS ORDERED: Mag Hydrox/Al Hydrox/Simeth 30 ML UDC PO PRN (22:12)
[2019-06-20] MEDS ORDERED: *HR* LORazepam 2 MG/ML VIAL IM PRN (22:12)
[2019-06-20] MEDS ORDERED: Ibuprofen 400 MG TABLET PO PRN (22:12)
[2019-06-20] MEDS ORDERED: hydrOXYzine pamoate 25 MG CAPSULE PO PRN (22:12)
[2019-06-20] MEDS ORDERED: traZODone 50 MG TABLET PO PRN (22:12)
[2019-06-20] MEDS ORDERED: Haloperidol Lactate 5 MG/ML VIAL IM PRN (22:12)
[2019-06-21] MEDS: Divalproex (12 HR) 500 MG TABLET PO SCH (11:36)
[2019-06-21] MEDS: Nicotine 21 MG PATCH.TD24 TD SCH (11:36)
[2019-06-21] MEDS ORDERED: Divalproex (12 HR) 500 MG TABLET PO SCH (21:00)
[2019-06-22] MEDS: Divalproex (12 HR) 500 MG TABLET PO SCH (10:06)
[2019-06-22] MEDS: Nicotine 21 MG PATCH.TD24 TD SCH (10:06)
[2019-06-22 12:20] VITALS: BP 106/64
== END 2019-06-22 12:42 | disposition home or self-care (01) ==
LOC: EMEROOARM 21:03 → 1ANU 21:03
PROVIDERS: ADMIT Psychiatry & Neurology Psychiatry; ATTEND Psychiatry & Neurology Psychiatry

== ENCOUNTER 2020-12-13 20:33 | Inpatient (IN) ==
[2020-12-13] MEDS ORDERED: Isovue-370 500 ML BOTTLE IVP ONE ×2 (21:20→21:56)
[2020-12-13 21:22] LABS: Amorphous Sediment,Urine Few per hpf (None-Few); Bacteria,Urine Few per hpf (None-Few); Basophils # 0.1 K/mcL (0.0-0.2); Basophils % 0.6 %; Bilirubin,Urine Negative (Negative); Blood,Urine Moderate (Negative); Clarity,Urine Clear (Clear); Color,Urine Yellow (Yellow); Eosinophils # 0.1 K/mcL (0.0-0.6); Eosinophils % 1.5 %; Glucose,Urine (UA) Normal (Normal); Hematocrit 45.6 % (37.5-50.1); Hemoglobin 15.9 g/dL (12.9-16.9); Hyaline Casts,Urine Few per lpf (None Seen); Immature Granulocytes % 0.4 % (0-4); Ketones,Urine Trace mg/dL (Negative); Leukocyte Esterase,Urine Negative (Negative); Lymphocytes # 1.4 K/mcL (0.6-4.6); Lymphocytes % 17.5 %; Mean Corpuscular HGB Conc 34.9 g/dL (31.6-35.5); Mean Corpuscular Hemoglobin 31.1 pg (28.0-33.3); Mean Corpuscular Volume 89.2 fL (83.0-100.0); Mean Platelet Volume 11.8 fL (9.4-12.4); Monocytes # 0.6 K/mcL (0.0-1.3); Monocytes % 7.7 %; Mucus,Urine Few per lpf (None-Few); Neutrophils # 5.9 K/mcL (1.6-8.9); Nitrite,Urine Negative (Negative); PH,Urine 6.5 pH Units (5.0-8.0); Platelet Count 186 K/mcL (140-400); Protein,Urine 30 mg/dL (Neg-Trace); RBC,Urine 50-100 per hpf (0-3); Red Blood Count 5.11 M/mcL (4.19-5.50); Red Cell Distribution Width 11.5 % (11.5-14.5); Segmented Neutrophils % 72.3 %; Specific Gravity,Urine 1.024 (1.010-1.025); Squamous Epithelial Cell,Urine Few per hpf (None-Few); Urobilinogen,Urine Normal (Normal); WBC,Urine 0-3 per hpf (0-3); White Blood Count 8.1 K/mcL (4.3-11.1)
[2020-12-13] MEDS ORDERED: Tdap (Boostrix) Vaccine 0.5 ML SYRINGE IM ONE (21:22)
[2020-12-13 21:24] LABS: Amphetamine Screen,Urine Negative ng/mL (Cutoff=1000); Barbiturate Screen,Urine Negative ng/mL (Cutoff=200); Benzodiazepines Screen,Urine Negative ng/mL (Cutoff=200); Cannabinoid Screen,Urine Negative ng/mL (Cutoff = 50); Cocaine Screen,Urine Negative ng/mL (Cutoff= 300); Opiate Screen,Urine Negative ng/mL (Cutoff=300); Phencyclidine Screen,Urine Negative ng/mL (Cutoff=25)
[2020-12-13 21:35] LABS: Acetaminophen < 10 mcg/mL (10-20); BUN/Creatinine Ratio 13 (6-26); Blood Urea Nitrogen 14 mg/dL (6-20); Calcium 9.5 mg/dL (8.6-10.3); Carbon Dioxide 26 mEq/L (23-29); Chloride 105 mEq/L (98-107); Ethanol < 10 mg/dL (Less than 10); Glucose 134 mg/dL (70-105); Osmolality,Calculated 292 (280-300); Potassium 3.7 mEq/L (3.5-5.1); Salicylate < 2.5 mg/dL (15.0-30.0); Sodium 140 mEq/L (136-145); eGFR For African Americans > 60 (> 60); eGFR For Non-African Americans > 60 (> 60)
[2020-12-13 23:58] LABS: Adenovirus Not Detected (Not Detect); Bordetella Pertussis Not Detected (Not Detect); Chlamydophila pneumoniae Not Detected (Not Detect); Coronavirus 229E Not Detected (Not Detect); Coronavirus HKU1 Not Detected (Not Detect); Coronavirus NL63 Not Detected (Not Detect); Coronavirus OC43 Not Detected (Not Detect); Human Metapneumovirus Not Detected (Not Detect); Human Rhinovirus/Enterovirus Not Detected (Not Detect); Influenza A Subtype 2009 H1 Not Detected (Not Detect); Influenza B Not Detected (Not Detect); Mycoplasma pneumoniae Not Detected (Not Detect); Parainfluenza Virus 1 Not Detected (Not Detect); Parainfluenza Virus 2 Not Detected (Not Detect); Parainfluenza Virus 3 Not Detected (Not Detect); Parainfluenza Virus 4 Not Detected (Not Detect); Respiratory Syncytial Virus Not Detected (Not Detect); SARS-CoV-2 Not Detected (Not Detect)
[2020-12-14] MEDS ORDERED: *HR* LORazepam 2 MG/ML VIAL IM PRN (00:03)
[2020-12-14] MEDS ORDERED: *HR* LORazepam 1 MG TABLET PO PRN (00:03)
[2020-12-14] MEDS ORDERED: Haloperidol Lactate 5 MG/ML VIAL IM PRN (00:03)
[2020-12-14] MEDS ORDERED: haloperidoL 5 MG TABLET PO PRN (00:03)
[2020-12-14] MEDS ORDERED: MOM Conc 10 ML UD.LIQ PO PRN (11:16)
[2020-12-14] MEDS ORDERED: Mag Hydrox/Al Hydrox/Simeth 30 ML UDC PO PRN (11:16)
[2020-12-14] MEDS: *HR* LORazepam 1 MG TABLET PO SCH ×2 (12:32→20:49)
[2020-12-14] MEDS: Divalproex (12 HR) 500 MG TABLET PO SCH (20:49)
[2020-12-14] MEDS: hydrOXYzine pamoate 25 MG CAPSULE PO PRN (23:49)
[2020-12-14] MEDS: Ibuprofen 400 MG TABLET PO PRN (23:49)
[2020-12-14] MEDS: traZODone 50 MG TABLET PO PRN (23:49)
[2020-12-15] MEDS: Divalproex (12 HR) 500 MG TABLET PO SCH ×2 (14:53→21:41)
[2020-12-15] MEDS: *HR* LORazepam 1 MG TABLET PO SCH ×2 (14:53→21:41)
[2020-12-15] MEDS: traZODone 50 MG TABLET PO PRN (21:41)
[2020-12-15] MEDS: hydrOXYzine pamoate 25 MG CAPSULE PO PRN (21:42)
[2020-12-16] MEDS: Divalproex (12 HR) 500 MG TABLET PO SCH ×3 (10:12→20:55)
[2020-12-16] MEDS: *HR* LORazepam 1 MG TABLET PO SCH ×3 (10:12→20:55)
[2020-12-16] MEDS ORDERED: *HR* LORazepam 2 MG/ML VIAL IM ONE (10:15)
[2020-12-16] MEDS: hydrOXYzine pamoate 25 MG CAPSULE PO PRN (20:55)
[2020-12-16] MEDS: Ibuprofen 400 MG TABLET PO PRN (20:55)
[2020-12-16] MEDS: traZODone 50 MG TABLET PO PRN (20:55)
[2020-12-17] MEDS ORDERED: *HR* LORazepam 2 MG/ML VIAL IM ONE (10:05)
[2020-12-17] MEDS: *HR* LORazepam 1 MG TABLET PO SCH ×4 (11:26→20:20)
[2020-12-17] MEDS: Divalproex (12 HR) 500 MG TABLET PO SCH ×2 (11:26→20:20)
[2020-12-17] MEDS: traZODone 50 MG TABLET PO PRN (20:20)
[2020-12-17] MEDS: hydrOXYzine pamoate 25 MG CAPSULE PO PRN (20:21)
[2020-12-18] MEDS: traZODone 50 MG TABLET PO PRN ×2 (00:04→23:53)
[2020-12-18] MEDS ORDERED: Paliperidone Palmitate 234 MG/1.5 ML SYRINGE IM SCH (08:30)
[2020-12-18] MEDS: *HR* LORazepam 1 MG TABLET PO SCH ×3 (08:52→20:45)
[2020-12-18] MEDS: Divalproex (12 HR) 500 MG TABLET PO SCH ×2 (08:52→20:45)
[2020-12-18] MEDS ORDERED: Paliperidone Palmitate 234 MG/1.5 ML SYRINGE IM ONE (09:00)
[2020-12-18] MEDS: hydrOXYzine pamoate 25 MG CAPSULE PO PRN (23:53)
[2020-12-19] MEDS: *HR* LORazepam 1 MG TABLET PO SCH ×3 (10:50→20:50)
[2020-12-19] MEDS: Divalproex (12 HR) 500 MG TABLET PO SCH ×2 (10:50→20:51)
[2020-12-19] MEDS: traZODone 50 MG TABLET PO PRN (20:51)
[2020-12-19] MEDS: hydrOXYzine pamoate 25 MG CAPSULE PO PRN (20:51)
[2020-12-20] MEDS: *HR* LORazepam 1 MG TABLET PO SCH ×3 (10:18→21:42)
[2020-12-20] MEDS: Divalproex (12 HR) 500 MG TABLET PO SCH ×2 (10:19→21:41)
[2020-12-20] MEDS: hydrOXYzine pamoate 25 MG CAPSULE PO PRN (21:42)
[2020-12-20] MEDS: traZODone 50 MG TABLET PO PRN (21:42)
[2020-12-21] MEDS: *HR* LORazepam 1 MG TABLET PO SCH ×3 (08:48→21:40)
[2020-12-21] MEDS: Divalproex (12 HR) 500 MG TABLET PO SCH ×2 (08:48→21:40)
[2020-12-21] MEDS ORDERED: *HR* LORazepam 1 MG TABLET PO ONE (10:50)
[2020-12-21] MEDS: traZODone 50 MG TABLET PO PRN (21:40)
[2020-12-21] MEDS: hydrOXYzine pamoate 25 MG CAPSULE PO PRN (21:40)
[2020-12-22] MEDS ORDERED: Paliperidone Palmitate 156 MG/ML SYRINGE IM SCH (08:30)
[2020-12-22] MEDS: *HR* LORazepam 1 MG TABLET PO SCH ×3 (10:16→20:33)
[2020-12-22] MEDS: Divalproex (12 HR) 500 MG TABLET PO SCH ×2 (10:16→20:34)
[2020-12-22] MEDS: traZODone 50 MG TABLET PO PRN (20:33)
[2020-12-22] MEDS: hydrOXYzine pamoate 25 MG CAPSULE PO PRN (20:33)
[2020-12-23] MEDS: Divalproex (12 HR) 500 MG TABLET PO SCH ×2 (10:43→20:24)
[2020-12-23] MEDS: *HR* LORazepam 1 MG TABLET PO SCH ×3 (13:43→20:26)
[2020-12-23 16:13] LABS: Albumin 4.4 g/dL (3.5-5.7); Albumin/Globulin Ratio 2.2 (1.1-2.2); Bilirubin,Direct 0.1 mg/dL (0.0-0.2); Bilirubin,Indirect 0.4 mg/dL (0.0-1.0); Bilirubin,Total 0.5 mg/dL (0.3-1.0); Total Protein 6.4 g/dL (6.4-8.9)
[2020-12-23] MEDS: traZODone 50 MG TABLET PO PRN (20:24)
[2020-12-23] MEDS: hydrOXYzine pamoate 25 MG CAPSULE PO PRN (20:26)
[2020-12-24] MEDS: *HR* LORazepam 1 MG TABLET PO SCH ×3 (09:02→20:20)
[2020-12-24] MEDS: Divalproex (12 HR) 500 MG TABLET PO SCH ×2 (09:02→20:19)
[2020-12-24] MEDS: hydrOXYzine pamoate 25 MG CAPSULE PO PRN (20:19)
[2020-12-24] MEDS: traZODone 50 MG TABLET PO PRN (20:20)
[2020-12-25] MEDS: *HR* LORazepam 1 MG TABLET PO SCH ×3 (09:01→21:04)
[2020-12-25] MEDS: Divalproex (12 HR) 500 MG TABLET PO SCH ×2 (09:01→21:04)
[2020-12-25] MEDS: traZODone 50 MG TABLET PO PRN (21:04)
[2020-12-26 06:31] LABS: Basophils % 0.6 %; Eosinophils # 0.2 K/mcL (0.0-0.6); Eosinophils % 2.6 %; Hematocrit 46.7 % (37.5-50.1); Hemoglobin 16.7 g/dL (12.9-16.9); Immature Granulocytes % 1.1 % (0-4); Lymphocytes # 1.9 K/mcL (0.6-4.6); Lymphocytes % 30.6 %; Mean Corpuscular HGB Conc 35.8 g/dL (31.6-35.5); Mean Corpuscular Hemoglobin 32.6 pg (28.0-33.3); Mean Corpuscular Volume 91.2 fL (83.0-100.0); Mean Platelet Volume 11.1 fL (9.4-12.4); Monocytes # 0.4 K/mcL (0.0-1.3); Neutrophils # 3.6 K/mcL (1.6-8.9); Platelet Count 179 K/mcL (140-400); Red Blood Count 5.12 M/mcL (4.19-5.50); Red Cell Distribution Width 11.5 % (11.5-14.5); Segmented Neutrophils % 58.1 %; White Blood Count 6.2 K/mcL (4.3-11.1)
[2020-12-26] MEDS: *HR* LORazepam 1 MG TABLET PO SCH ×3 (12:52→21:30)
[2020-12-26] MEDS: Divalproex (12 HR) 500 MG TABLET PO SCH ×2 (12:52→21:30)
[2020-12-26] MEDS: hydrOXYzine pamoate 25 MG CAPSULE PO PRN (21:29)
[2020-12-26] MEDS: Ibuprofen 400 MG TABLET PO PRN (21:29)
[2020-12-26] MEDS: cloZAPine 25 MG TABLET PO SCH (21:29)
[2020-12-26] MEDS: traZODone 50 MG TABLET PO PRN (21:30)
[2020-12-27] MEDS: *HR* LORazepam 1 MG TABLET PO SCH ×3 (12:39→21:06)
[2020-12-27] MEDS: Divalproex (12 HR) 500 MG TABLET PO SCH ×2 (12:39→21:05)
[2020-12-27] MEDS: cloZAPine 25 MG TABLET PO SCH (21:05)
[2020-12-28] MEDS: traZODone 50 MG TABLET PO PRN ×2 (00:44→21:27)
[2020-12-28] MEDS: hydrOXYzine pamoate 25 MG CAPSULE PO PRN (00:44)
[2020-12-28] MEDS: Divalproex (12 HR) 500 MG TABLET PO SCH ×3 (09:23→21:22)
[2020-12-28] MEDS: *HR* LORazepam 1 MG TABLET PO SCH ×4 (09:23→21:25)
[2020-12-28] MEDS: cloZAPine 25 MG TABLET PO SCH (21:26)
[2020-12-29] MEDS: *HR* LORazepam 1 MG TABLET PO SCH ×3 (09:28→21:21)
[2020-12-29] MEDS: Divalproex (12 HR) 500 MG TABLET PO SCH ×2 (09:28→21:21)
[2020-12-29] MEDS: cloZAPine 25 MG TABLET PO SCH (21:21)
[2020-12-29] MEDS: traZODone 50 MG TABLET PO PRN (21:21)
[2020-12-30] MEDS: traZODone 50 MG TABLET PO PRN ×2 (01:40→21:15)
[2020-12-30] MEDS: hydrOXYzine pamoate 25 MG CAPSULE PO PRN ×2 (01:40→21:15)
[2020-12-30] MEDS: Divalproex (12 HR) 500 MG TABLET PO SCH ×2 (10:46→21:15)
[2020-12-30] MEDS: *HR* LORazepam 0.5 MG TABLET PO SCH (10:46)
[2020-12-30] MEDS: *HR* LORazepam 1 MG TABLET PO SCH ×3 (11:41→21:15)
[2020-12-30] MEDS: cloZAPine 25 MG TABLET PO SCH (21:15)
[2020-12-31] MEDS: *HR* LORazepam 0.5 MG TABLET PO SCH (10:24)
[2020-12-31] MEDS: Divalproex (12 HR) 500 MG TABLET PO SCH ×2 (10:24→21:00)
[2020-12-31] MEDS: *HR* LORazepam 1 MG TABLET PO SCH ×2 (15:26→20:59)
[2020-12-31] MEDS: cloZAPine 25 MG TABLET PO SCH (21:00)
[2020-12-31] MEDS: traZODone 50 MG TABLET PO PRN (21:01)
[2021-01-01] MEDS: Divalproex (12 HR) 500 MG TABLET PO SCH ×2 (09:35→21:19)
[2021-01-01] MEDS: *HR* LORazepam 0.5 MG TABLET PO SCH (09:35)
[2021-01-01] MEDS: cloZAPine 25 MG TABLET PO SCH ×2 (09:35→21:19)
[2021-01-01] MEDS: *HR* LORazepam 1 MG TABLET PO SCH ×2 (14:51→21:19)
[2021-01-01 19:26] LABS: Basophils % 0.5 %; Eosinophils # 0.1 K/mcL (0.0-0.6); Eosinophils % 1.5 %; Hematocrit 42.5 % (37.5-50.1); Immature Granulocytes % 0.5 % (0-4); Lymphocytes # 1.5 K/mcL (0.6-4.6); Mean Corpuscular HGB Conc 35.1 g/dL (31.6-35.5); Mean Corpuscular Hemoglobin 31.7 pg (28.0-33.3); Mean Corpuscular Volume 90.4 fL (83.0-100.0); Mean Platelet Volume 11.2 fL (9.4-12.4); Monocytes # 0.6 K/mcL (0.0-1.3); Monocytes % 10.2 %; Neutrophils # 3.3 K/mcL (1.6-8.9); Platelet Count 174 K/mcL (140-400); Red Cell Distribution Width 11.5 % (11.5-14.5); Segmented Neutrophils % 59.3 %; White Blood Count 5.5 K/mcL (4.3-11.1)
[2021-01-01 19:29] LABS: Hemoglobin 14.9 g/dL (12.9-16.9)
[2021-01-01 19:45] LABS: C-Reactive Protein < 5 mg/L (Less than 10)
[2021-01-01 19:46] LABS: Troponin I < 0.03 ng/mL (< 0.04)
[2021-01-01] MEDS: traZODone 50 MG TABLET PO PRN (21:19)
[2021-01-02] MEDS: cloZAPine 25 MG TABLET PO SCH ×3 (12:35→21:01)
[2021-01-02] MEDS: Divalproex (12 HR) 500 MG TABLET PO SCH ×2 (12:53→21:01)
[2021-01-02] MEDS: *HR* LORazepam 0.5 MG TABLET PO SCH (12:54)
[2021-01-02] MEDS: *HR* LORazepam 1 MG TABLET PO SCH ×2 (18:01→21:01)
[2021-01-02] MEDS: traZODone 50 MG TABLET PO PRN (21:01)
[2021-01-02] MEDS: hydrOXYzine pamoate 25 MG CAPSULE PO PRN (21:02)
[2021-01-03] MEDS: cloZAPine 25 MG TABLET PO SCH ×2 (12:31→21:47)
[2021-01-03] MEDS: Divalproex (12 HR) 500 MG TABLET PO SCH ×2 (12:31→21:47)
[2021-01-03] MEDS: *HR* LORazepam 0.5 MG TABLET PO SCH (12:32)
[2021-01-03] MEDS: *HR* LORazepam 1 MG TABLET PO SCH ×2 (17:03→21:47)
[2021-01-04] MEDS: Divalproex (12 HR) 500 MG TABLET PO SCH ×2 (13:58→22:04)
[2021-01-04] MEDS: cloZAPine 25 MG TABLET PO SCH ×2 (13:58→14:20)
[2021-01-04] MEDS: *HR* LORazepam 0.5 MG TABLET PO SCH (13:58)
[2021-01-04] MEDS: *HR* LORazepam 1 MG TABLET PO SCH ×2 (17:02→22:04)
[2021-01-04] MEDS ORDERED: cloZAPine 25 MG TABLET PO SCH (21:00)
[2021-01-05] MEDS: cloZAPine 25 MG TABLET PO SCH ×2 (10:40→21:21)
[2021-01-05] MEDS: Divalproex (12 HR) 500 MG TABLET PO SCH ×2 (10:41→21:21)
[2021-01-05] MEDS: *HR* LORazepam 0.5 MG TABLET PO SCH ×3 (10:41→21:21)
[2021-01-06] MEDS: Divalproex (12 HR) 500 MG TABLET PO SCH ×2 (08:28→20:57)
[2021-01-06] MEDS: cloZAPine 25 MG TABLET PO SCH ×2 (08:28→20:58)
[2021-01-06] MEDS: *HR* LORazepam 0.5 MG TABLET PO SCH ×3 (08:28→20:57)
[2021-01-07] MEDS: *HR* LORazepam 0.5 MG TABLET PO SCH ×3 (08:36→21:01)
[2021-01-07] MEDS: cloZAPine 25 MG TABLET PO SCH ×2 (08:36→21:01)
[2021-01-07] MEDS: Divalproex (12 HR) 500 MG TABLET PO SCH ×2 (08:36→21:01)
[2021-01-07] MEDS: traZODone 50 MG TABLET PO PRN (21:01)
[2021-01-08] MEDS: cloZAPine 25 MG TABLET PO SCH ×2 (08:51→20:43)
[2021-01-08] MEDS: *HR* LORazepam 0.5 MG TABLET PO SCH ×3 (08:52→20:43)
[2021-01-08] MEDS: Divalproex (12 HR) 500 MG TABLET PO SCH ×2 (09:24→20:43)
[2021-01-08 13:55] LABS: Basophils # 0.1 K/mcL (0.0-0.2); Basophils % 0.7 %; Eosinophils # 0.1 K/mcL (0.0-0.6); Eosinophils % 1.6 %; Hematocrit 44.7 % (37.5-50.1); Hemoglobin 16.2 g/dL (12.9-16.9); Immature Granulocytes % 0.5 % (0-4); Lymphocytes # 1.2 K/mcL (0.6-4.6); Lymphocytes % 16.3 %; Mean Corpuscular HGB Conc 36.2 g/dL (31.6-35.5); Mean Corpuscular Hemoglobin 31.6 pg (28.0-33.3); Mean Corpuscular Volume 87.1 fL (83.0-100.0); Mean Platelet Volume 10.8 fL (9.4-12.4); Monocytes % 13.7 %; Neutrophils # 4.9 K/mcL (1.6-8.9); Platelet Count 192 K/mcL (140-400); Red Blood Count 5.13 M/mcL (4.19-5.50); Red Cell Distribution Width 11.4 % (11.5-14.5); Segmented Neutrophils % 67.2 %; White Blood Count 7.4 K/mcL (4.3-11.1)
[2021-01-08 14:36] LABS: Alanine Aminotransferase 28 Units/L (7-52); Albumin 4.2 g/dL (3.5-5.7); Albumin/Globulin Ratio 1.9 (1.1-2.2); Alkaline Phosphatase 66 Units/L (34-104); Aspartate Amino Transferase 20 Units/L (13-39); BUN/Creatinine Ratio 11 (6-26); Bilirubin,Total 0.8 mg/dL (0.3-1.0); Blood Urea Nitrogen 12 mg/dL (6-20); C-Reactive Protein < 5 mg/L (Less than 10); Calcium 9.1 mg/dL (8.6-10.3); Carbon Dioxide 28 mEq/L (23-29); Chloride 100 mEq/L (98-107); Globulin 2.2 g/dL (2.4-3.5); Glucose 94 mg/dL (70-105); Osmolality,Calculated 282 (280-300); Potassium 3.9 mEq/L (3.5-5.1); Sodium 136 mEq/L (136-145); Total Protein 6.4 g/dL (6.4-8.9); Troponin I < 0.03 ng/mL (< 0.04); Valproate 59 mcg/mL (50-100); eGFR For African Americans > 60 (> 60); eGFR For Non-African Americans > 60 (> 60)
[2021-01-08] MEDS: traZODone 50 MG TABLET PO PRN (20:43)
[2021-01-09] MEDS: *HR* LORazepam 0.5 MG TABLET PO SCH ×3 (09:26→20:32)
[2021-01-09] MEDS: Divalproex (12 HR) 500 MG TABLET PO SCH ×2 (09:27→20:32)
[2021-01-09] MEDS: cloZAPine 25 MG TABLET PO SCH ×2 (09:27→20:32)
[2021-01-09] MEDS: traZODone 50 MG TABLET PO PRN (20:32)
[2021-01-10] MEDS: cloZAPine 25 MG TABLET PO SCH ×2 (10:27→20:55)
[2021-01-10] MEDS: *HR* LORazepam 0.5 MG TABLET PO SCH ×3 (10:27→20:55)
[2021-01-10] MEDS: Divalproex (12 HR) 500 MG TABLET PO SCH ×2 (10:27→20:55)
[2021-01-10] MEDS: traZODone 50 MG TABLET PO PRN (20:56)
[2021-01-11] MEDS: *HR* LORazepam 0.5 MG TABLET PO SCH ×3 (09:23→20:59)
[2021-01-11] MEDS: Divalproex (12 HR) 500 MG TABLET PO SCH ×2 (09:23→20:59)
[2021-01-11] MEDS: cloZAPine 25 MG TABLET PO SCH ×2 (09:23→20:59)
[2021-01-11] MEDS: traZODone 50 MG TABLET PO PRN (20:59)
[2021-01-12] MEDS: *HR* LORazepam 0.5 MG TABLET PO SCH ×3 (11:55→21:00)
[2021-01-12] MEDS: cloZAPine 25 MG TABLET PO SCH ×2 (11:55→21:00)
[2021-01-12] MEDS: Divalproex (12 HR) 500 MG TABLET PO SCH ×2 (11:55→20:59)
[2021-01-12] MEDS: traZODone 50 MG TABLET PO PRN (21:00)
[2021-01-13] MEDS: *HR* LORazepam 0.5 MG TABLET PO SCH ×3 (10:33→20:30)
[2021-01-13] MEDS: Divalproex (12 HR) 500 MG TABLET PO SCH ×2 (10:33→20:30)
[2021-01-13] MEDS: cloZAPine 25 MG TABLET PO SCH (10:34)
[2021-01-13] MEDS: cloZAPine 100 MG TABLET PO SCH (20:30)
[2021-01-13] MEDS: traZODone 50 MG TABLET PO PRN (20:30)
[2021-01-14] MEDS: *HR* LORazepam 0.5 MG TABLET PO SCH ×3 (10:14→20:26)
[2021-01-14] MEDS: cloZAPine 25 MG TABLET PO SCH (10:14)
[2021-01-14] MEDS: Divalproex (12 HR) 500 MG TABLET PO SCH ×2 (10:14→20:26)
[2021-01-14] MEDS: traZODone 50 MG TABLET PO PRN (20:26)
[2021-01-14] MEDS: cloZAPine 100 MG TABLET PO SCH (20:26)
[2021-01-15 09:16] LABS: Basophils % 0.9 %; Eosinophils # 0.2 K/mcL (0.0-0.6); Eosinophils % 3.7 %; Hematocrit 44.3 % (37.5-50.1); Immature Granulocytes % 0.6 % (0-4); Lymphocytes # 1.6 K/mcL (0.6-4.6); Lymphocytes % 34.8 %; Mean Corpuscular HGB Conc 36.1 g/dL (31.6-35.5); Mean Corpuscular Hemoglobin 31.9 pg (28.0-33.3); Mean Corpuscular Volume 88.2 fL (83.0-100.0); Mean Platelet Volume 10.7 fL (9.4-12.4); Monocytes # 0.6 K/mcL (0.0-1.3); Monocytes % 12.3 %; Neutrophils # 2.2 K/mcL (1.6-8.9); Platelet Count 176 K/mcL (140-400); Red Blood Count 5.02 M/mcL (4.19-5.50); Red Cell Distribution Width 11.3 % (11.5-14.5); Segmented Neutrophils % 47.7 %; White Blood Count 4.6 K/mcL (4.3-11.1)
[2021-01-15 09:53] LABS: Alanine Aminotransferase 26 Units/L (7-52); Albumin 4.1 g/dL (3.5-5.7); Albumin/Globulin Ratio 2.1 (1.1-2.2); Alkaline Phosphatase 57 Units/L (34-104); Aspartate Amino Transferase 17 Units/L (13-39); BUN/Creatinine Ratio 11 (6-26); Bilirubin,Total 0.7 mg/dL (0.3-1.0); Blood Urea Nitrogen 13 mg/dL (6-20); Calcium 9.2 mg/dL (8.6-10.3); Carbon Dioxide 28 mEq/L (23-29); Chloride 103 mEq/L (98-107); Glucose 84 mg/dL (70-105); Osmolality,Calculated 287 (280-300); Potassium 3.9 mEq/L (3.5-5.1); Sodium 139 mEq/L (136-145); Total Protein 6.1 g/dL (6.4-8.9); Troponin I < 0.03 ng/mL (< 0.04); eGFR For African Americans > 60 (> 60); eGFR For Non-African Americans > 60 (> 60)
[2021-01-15 09:59] LABS: C-Reactive Protein < 5 mg/L (Less than 10)
[2021-01-15] MEDS: Divalproex (12 HR) 500 MG TABLET PO SCH ×2 (11:38→20:43)
[2021-01-15] MEDS: *HR* LORazepam 0.5 MG TABLET PO SCH ×3 (11:38→20:44)
[2021-01-15] MEDS: cloZAPine 100 MG TABLET PO SCH ×2 (11:38→20:43)
[2021-01-15] MEDS: hydrOXYzine pamoate 25 MG CAPSULE PO PRN (20:43)
[2021-01-15] MEDS: traZODone 50 MG TABLET PO PRN ×2 (20:44→23:13)
[2021-01-15] MEDS: Ibuprofen 400 MG TABLET PO PRN (20:44)
[2021-01-16] MEDS: cloZAPine 100 MG TABLET PO SCH ×2 (10:44→21:00)
[2021-01-16] MEDS: Divalproex (12 HR) 500 MG TABLET PO SCH ×2 (10:44→21:00)
[2021-01-16] MEDS: *HR* LORazepam 0.5 MG TABLET PO SCH ×3 (10:44→21:00)
[2021-01-16] MEDS: traZODone 50 MG TABLET PO PRN (21:01)
[2021-01-17] MEDS: cloZAPine 100 MG TABLET PO SCH ×2 (12:45→21:20)
[2021-01-17] MEDS: Divalproex (12 HR) 500 MG TABLET PO SCH ×2 (12:45→21:21)
[2021-01-17] MEDS: *HR* LORazepam 0.5 MG TABLET PO SCH ×3 (12:46→21:21)
[2021-01-17] MEDS: cloZAPine 25 MG TABLET PO SCH (21:21)
[2021-01-17] MEDS: traZODone 50 MG TABLET PO PRN (21:21)
[2021-01-18] MEDS: cloZAPine 100 MG TABLET PO SCH ×2 (12:20→21:01)
[2021-01-18] MEDS: Divalproex (12 HR) 500 MG TABLET PO SCH ×2 (12:20→21:01)
[2021-01-18] MEDS: *HR* LORazepam 0.5 MG TABLET PO SCH ×2 (12:20→21:01)
[2021-01-18] MEDS: traZODone 50 MG TABLET PO PRN (21:01)
[2021-01-18] MEDS: cloZAPine 25 MG TABLET PO SCH (21:01)
[2021-01-19] MEDS: *HR* LORazepam 0.5 MG TABLET PO SCH ×2 (12:16→21:13)
[2021-01-19] MEDS: cloZAPine 100 MG TABLET PO SCH ×2 (12:16→21:13)
[2021-01-19] MEDS: Divalproex (12 HR) 500 MG TABLET PO SCH ×2 (12:16→21:13)
[2021-01-19] MEDS: cloZAPine 25 MG TABLET PO SCH (21:13)
[2021-01-19] MEDS: traZODone 50 MG TABLET PO PRN (21:13)
[2021-01-20] MEDS: *HR* LORazepam 0.5 MG TABLET PO SCH ×2 (08:29→21:02)
[2021-01-20] MEDS: Divalproex (12 HR) 500 MG TABLET PO SCH ×2 (08:29→21:01)
[2021-01-20] MEDS: cloZAPine 100 MG TABLET PO SCH ×2 (08:29→21:01)
[2021-01-20] MEDS ORDERED: Paliperidone Palmitate 156 MG/ML SYRINGE IM SCH (16:50)
[2021-01-20] MEDS: cloZAPine 25 MG TABLET PO SCH (21:01)
[2021-01-20] MEDS: traZODone 50 MG TABLET PO PRN (21:01)
[2021-01-20] MEDS: hydrOXYzine pamoate 25 MG CAPSULE PO PRN (21:01)
[2021-01-21] MEDS: cloZAPine 100 MG TABLET PO SCH ×2 (09:31→20:37)
[2021-01-21] MEDS: *HR* LORazepam 0.5 MG TABLET PO SCH ×2 (09:31→20:38)
[2021-01-21] MEDS: Divalproex (12 HR) 500 MG TABLET PO SCH ×2 (09:31→20:37)
[2021-01-21] MEDS: traZODone 50 MG TABLET PO PRN (20:38)
[2021-01-21] MEDS: cloZAPine 25 MG TABLET PO SCH (20:38)
[2021-01-22] MEDS: *HR* LORazepam 0.5 MG TABLET PO SCH ×2 (10:28→20:25)
[2021-01-22] MEDS: cloZAPine 100 MG TABLET PO SCH ×2 (10:28→20:25)
[2021-01-22] MEDS: Divalproex (12 HR) 500 MG TABLET PO SCH ×2 (10:29→20:25)
[2021-01-22 15:29] LABS: Alanine Aminotransferase 31 Units/L (7-52); Albumin 4.1 g/dL (3.5-5.7); Albumin/Globulin Ratio 1.8 (1.1-2.2); Alkaline Phosphatase 65 Units/L (34-104); Aspartate Amino Transferase 19 Units/L (13-39); BUN/Creatinine Ratio 14 (6-26); Bilirubin,Total 0.5 mg/dL (0.3-1.0); Blood Urea Nitrogen 14 mg/dL (6-20); C-Reactive Protein < 5 mg/L (Less than 10); Calcium 9.1 mg/dL (8.6-10.3); Carbon Dioxide 26 mEq/L (23-29); Chloride 102 mEq/L (98-107); Creatine Kinase 213 Units/L (30-223); Globulin 2.3 g/dL (2.4-3.5); Glucose 140 mg/dL (70-105); Osmolality,Calculated 287 (280-300); Potassium 4.1 mEq/L (3.5-5.1); Sodium 137 mEq/L (136-145); Total Protein 6.4 g/dL (6.4-8.9); eGFR For African Americans > 60 (> 60); eGFR For Non-African Americans > 60 (> 60)
[2021-01-22 15:36] LABS: Troponin I < 0.03 ng/mL (< 0.04)
[2021-01-22] MEDS: cloZAPine 25 MG TABLET PO SCH (20:25)
[2021-01-23] MEDS: *HR* LORazepam 0.5 MG TABLET PO SCH ×2 (08:30→20:51)
[2021-01-23] MEDS: cloZAPine 100 MG TABLET PO SCH ×2 (08:30→20:51)
[2021-01-23] MEDS: Divalproex (12 HR) 500 MG TABLET PO SCH ×2 (08:31→20:52)
[2021-01-23 13:23] LABS: Basophils % 0.5 %; Eosinophils # 0.1 K/mcL (0.0-0.6); Eosinophils % 2.5 %; Hematocrit 42.1 % (37.5-50.1); Hemoglobin 15.2 g/dL (12.9-16.9); Immature Granulocytes % 0.7 % (0-4); Lymphocytes # 1.1 K/mcL (0.6-4.6); Lymphocytes % 19.5 %; Mean Corpuscular HGB Conc 36.1 g/dL (31.6-35.5); Mean Corpuscular Hemoglobin 32.1 pg (28.0-33.3); Mean Corpuscular Volume 88.8 fL (83.0-100.0); Mean Platelet Volume 10.7 fL (9.4-12.4); Monocytes # 0.8 K/mcL (0.0-1.3); Monocytes % 14.3 %; Neutrophils # 3.5 K/mcL (1.6-8.9); Platelet Count 185 K/mcL (140-400); Red Blood Count 4.74 M/mcL (4.19-5.50); Red Cell Distribution Width 11.1 % (11.5-14.5); Segmented Neutrophils % 62.5 %; White Blood Count 5.5 K/mcL (4.3-11.1)
[2021-01-23] MEDS: cloZAPine 25 MG TABLET PO SCH (20:52)
[2021-01-24] MEDS: *HR* LORazepam 0.5 MG TABLET PO SCH ×2 (10:45→21:48)
[2021-01-24] MEDS: cloZAPine 100 MG TABLET PO SCH ×2 (10:45→21:48)
[2021-01-24] MEDS: Divalproex (12 HR) 500 MG TABLET PO SCH ×2 (10:45→21:48)
[2021-01-25] MEDS: *HR* LORazepam 0.5 MG TABLET PO SCH ×2 (11:43→20:22)
[2021-01-25] MEDS: Divalproex (12 HR) 500 MG TABLET PO SCH ×2 (11:43→20:22)
[2021-01-25] MEDS: cloZAPine 100 MG TABLET PO SCH ×2 (11:43→20:22)
[2021-01-25] MEDS: Ibuprofen 400 MG TABLET PO PRN (20:22)
[2021-01-26] MEDS: *HR* LORazepam 0.5 MG TABLET PO SCH ×2 (10:26→21:31)
[2021-01-26] MEDS: cloZAPine 100 MG TABLET PO SCH ×2 (10:26→21:30)
[2021-01-26] MEDS: Divalproex (12 HR) 500 MG TABLET PO SCH ×2 (10:26→21:31)
[2021-01-26] MEDS: cloZAPine 25 MG TABLET PO SCH (21:31)
[2021-01-26] MEDS: traZODone 50 MG TABLET PO PRN (21:31)
[2021-01-27] MEDS: cloZAPine 100 MG TABLET PO SCH ×2 (09:05→21:16)
[2021-01-27] MEDS: Divalproex (12 HR) 500 MG TABLET PO SCH ×2 (09:05→21:16)
[2021-01-27] MEDS: *HR* LORazepam 0.5 MG TABLET PO SCH ×2 (09:05→21:16)
[2021-01-27] MEDS: traZODone 50 MG TABLET PO PRN (21:16)
[2021-01-27] MEDS: cloZAPine 25 MG TABLET PO SCH (21:22)
[2021-01-28] MEDS: Divalproex (12 HR) 500 MG TABLET PO SCH ×2 (08:55→20:54)
[2021-01-28] MEDS: *HR* LORazepam 0.5 MG TABLET PO SCH ×2 (08:55→20:54)
[2021-01-28] MEDS: cloZAPine 100 MG TABLET PO SCH ×2 (08:55→20:54)
[2021-01-28] MEDS: traZODone 50 MG TABLET PO PRN (20:54)
[2021-01-28] MEDS: cloZAPine 25 MG TABLET PO SCH (20:56)
[2021-01-29] MEDS: *HR* LORazepam 0.5 MG TABLET PO SCH ×2 (09:18→20:26)
[2021-01-29] MEDS: cloZAPine 100 MG TABLET PO SCH ×2 (09:18→20:25)
[2021-01-29] MEDS: Divalproex (12 HR) 500 MG TABLET PO SCH ×2 (09:19→20:26)
[2021-01-29 10:07] LABS: Immature Granulocytes % 1.1 % (0-4)
[2021-01-29 10:08] LABS: Basophils % 0.7 %; Eosinophils # 0.2 K/mcL (0.0-0.6); Eosinophils % 3.6 %; Hematocrit 43.4 % (37.5-50.1); Hemoglobin 15.5 g/dL (12.9-16.9); Lymphocytes # 1.3 K/mcL (0.6-4.6); Lymphocytes % 29.7 %; Mean Corpuscular HGB Conc 35.7 g/dL (31.6-35.5); Mean Corpuscular Hemoglobin 31.2 pg (28.0-33.3); Mean Corpuscular Volume 87.3 fL (83.0-100.0); Mean Platelet Volume 10.5 fL (9.4-12.4); Monocytes # 0.6 K/mcL (0.0-1.3); Monocytes % 12.7 %; Platelet Count 220 K/mcL (140-400); Red Blood Count 4.97 M/mcL (4.19-5.50); Red Cell Distribution Width 11.3 % (11.5-14.5); Segmented Neutrophils % 52.2 %; White Blood Count 4.5 K/mcL (4.3-11.1)
[2021-01-29 10:19] LABS: Neutrophils # 2.4 K/mcL (1.6-8.9)
[2021-01-29 10:23] LABS: Alanine Aminotransferase 34 Units/L (7-52); Albumin 4.1 g/dL (3.5-5.7); Alkaline Phosphatase 63 Units/L (34-104); Aspartate Amino Transferase 19 Units/L (13-39); BUN/Creatinine Ratio 11 (6-26); Bilirubin,Total 0.5 mg/dL (0.3-1.0); Blood Urea Nitrogen 11 mg/dL (6-20); Calcium 9.1 mg/dL (8.6-10.3); Carbon Dioxide 25 mEq/L (23-29); Chloride 104 mEq/L (98-107); Creatine Kinase 153 Units/L (30-223); Glucose 86 mg/dL (70-105); Osmolality,Calculated 287 (280-300); Potassium 4.2 mEq/L (3.5-5.1); Sodium 139 mEq/L (136-145); eGFR For African Americans > 60 (> 60); eGFR For Non-African Americans > 60 (> 60)
[2021-01-29 11:13] LABS: Troponin I < 0.03 ng/mL (< 0.04)
[2021-01-29 11:15] LABS: Albumin/Globulin Ratio 1.7 (1.1-2.2); Globulin 2.4 g/dL (2.4-3.5); Total Protein 6.5 g/dL (6.4-8.9)
[2021-01-29] MEDS: traZODone 50 MG TABLET PO PRN (20:26)
[2021-01-29] MEDS: cloZAPine 25 MG TABLET PO SCH (20:26)
[2021-01-30] MEDS: Divalproex (12 HR) 500 MG TABLET PO SCH ×2 (10:15→20:17)
[2021-01-30] MEDS: cloZAPine 100 MG TABLET PO SCH ×2 (10:16→20:17)
[2021-01-30] MEDS: *HR* LORazepam 0.5 MG TABLET PO SCH ×2 (10:16→20:17)
[2021-01-30] MEDS: cloZAPine 25 MG TABLET PO SCH (20:16)
[2021-01-30] MEDS: traZODone 50 MG TABLET PO PRN (20:17)
[2021-01-31] MEDS: *HR* LORazepam 0.5 MG TABLET PO SCH ×2 (09:05→21:00)
[2021-01-31] MEDS: Divalproex (12 HR) 500 MG TABLET PO SCH ×2 (09:05→21:00)
[2021-01-31] MEDS: cloZAPine 100 MG TABLET PO SCH ×2 (09:05→21:00)
[2021-01-31] MEDS: traZODone 50 MG TABLET PO PRN (21:00)
[2021-01-31] MEDS: cloZAPine 25 MG TABLET PO SCH (21:00)
[2021-02-01] MEDS: Divalproex (12 HR) 500 MG TABLET PO SCH ×2 (12:12→20:13)
[2021-02-01] MEDS: *HR* LORazepam 0.5 MG TABLET PO SCH ×2 (12:12→20:13)
[2021-02-01] MEDS: cloZAPine 100 MG TABLET PO SCH ×2 (12:13→20:12)
[2021-02-01 13:48] LABS: Clozapine-N-Oxide Quant <100 ng/mL; Norclozapine Quant 110 ng/mL
[2021-02-01 14:03] LABS: Clozapine Quant 324 ng/mL
[2021-02-01] MEDS: traZODone 50 MG TABLET PO PRN (20:13)
[2021-02-02] MEDS: Divalproex (12 HR) 500 MG TABLET PO SCH ×2 (10:52→21:07)
[2021-02-02] MEDS: *HR* LORazepam 0.5 MG TABLET PO SCH ×2 (10:52→21:07)
[2021-02-02] MEDS: cloZAPine 100 MG TABLET PO SCH ×2 (10:53→21:07)
[2021-02-03] MEDS: *HR* LORazepam 0.5 MG TABLET PO SCH ×2 (08:47→21:17)
[2021-02-03] MEDS: Divalproex (12 HR) 500 MG TABLET PO SCH ×2 (08:47→21:17)
[2021-02-03] MEDS: cloZAPine 100 MG TABLET PO SCH ×2 (08:47→21:16)
[2021-02-04] MEDS: cloZAPine 100 MG TABLET PO SCH ×2 (10:53→21:19)
[2021-02-04] MEDS: Divalproex (12 HR) 500 MG TABLET PO SCH ×2 (10:53→21:19)
[2021-02-04] MEDS: *HR* LORazepam 0.5 MG TABLET PO SCH ×2 (10:53→21:20)
[2021-02-04] MEDS: cloZAPine 25 MG TABLET PO SCH (10:55)
[2021-02-05 08:27] LABS: Basophils % 0.5 %; Eosinophils # 0.1 K/mcL (0.0-0.6); Eosinophils % 1.8 %; Hematocrit 40.7 % (37.5-50.1); Hemoglobin 14.9 g/dL (12.9-16.9); Immature Granulocytes % 0.6 % (0-4); Lymphocytes # 1.6 K/mcL (0.6-4.6); Lymphocytes % 20.9 %; Mean Corpuscular HGB Conc 36.6 g/dL (31.6-35.5); Mean Corpuscular Hemoglobin 31.4 pg (28.0-33.3); Mean Corpuscular Volume 85.7 fL (83.0-100.0); Mean Platelet Volume 10.3 fL (9.4-12.4); Monocytes # 0.8 K/mcL (0.0-1.3); Monocytes % 10.8 %; Platelet Count 215 K/mcL (140-400); Red Blood Count 4.75 M/mcL (4.19-5.50); Segmented Neutrophils % 65.4 %; White Blood Count 7.7 K/mcL (4.3-11.1)
[2021-02-05 08:47] LABS: Alanine Aminotransferase 25 Units/L (7-52); Albumin/Globulin Ratio 1.9 (1.1-2.2); Alkaline Phosphatase 66 Units/L (34-104); Aspartate Amino Transferase 16 Units/L (13-39); BUN/Creatinine Ratio 11 (6-26); Bilirubin,Total 0.7 mg/dL (0.3-1.0); Blood Urea Nitrogen 12 mg/dL (6-20); Carbon Dioxide 28 mEq/L (23-29); Chloride 95 mEq/L (98-107); Creatine Kinase 175 Units/L (30-223); Globulin 2.1 g/dL (2.4-3.5); Glucose 92 mg/dL (70-105); Osmolality,Calculated 273 (280-300); Potassium 3.8 mEq/L (3.5-5.1); Sodium 132 mEq/L (136-145); Total Protein 6.1 g/dL (6.4-8.9); eGFR For African Americans > 60 (> 60); eGFR For Non-African Americans > 60 (> 60)
[2021-02-05 08:48] LABS: Troponin I < 0.03 ng/mL (< 0.04)
[2021-02-05] MEDS: Divalproex (12 HR) 500 MG TABLET PO SCH ×2 (09:26→20:32)
[2021-02-05] MEDS: *HR* LORazepam 0.5 MG TABLET PO SCH ×2 (09:27→20:32)
[2021-02-05] MEDS: cloZAPine 100 MG TABLET PO SCH ×2 (09:28→20:32)
[2021-02-05] MEDS: cloZAPine 25 MG TABLET PO SCH (09:29)
[2021-02-05 10:54] LABS: C-Reactive Protein < 5 mg/L (Less than 10); Calcium 8.5 mg/dL (8.6-10.3)
[2021-02-05] MEDS: traZODone 50 MG TABLET PO PRN (20:32)
[2021-02-06] MEDS: *HR* LORazepam 0.5 MG TABLET PO SCH ×2 (09:45→20:34)
[2021-02-06] MEDS: cloZAPine 25 MG TABLET PO SCH (09:46)
[2021-02-06] MEDS: cloZAPine 100 MG TABLET PO SCH ×2 (09:47→20:34)
[2021-02-06] MEDS: Divalproex (12 HR) 500 MG TABLET PO SCH ×2 (09:47→20:34)
[2021-02-06] MEDS: traZODone 50 MG TABLET PO PRN (20:34)
[2021-02-07] MEDS: cloZAPine 100 MG TABLET PO SCH ×2 (13:14→20:42)
[2021-02-07] MEDS: *HR* LORazepam 0.5 MG TABLET PO SCH ×2 (13:15→20:42)
[2021-02-07] MEDS: Divalproex (12 HR) 500 MG TABLET PO SCH ×2 (13:15→20:42)
[2021-02-07] MEDS: cloZAPine 25 MG TABLET PO SCH (13:15)
[2021-02-07] MEDS: traZODone 50 MG TABLET PO PRN (20:42)
[2021-02-08] MEDS: cloZAPine 100 MG TABLET PO SCH ×2 (12:25→20:37)
[2021-02-08] MEDS: *HR* LORazepam 0.5 MG TABLET PO SCH ×2 (12:26→20:37)
[2021-02-08] MEDS: Divalproex (12 HR) 500 MG TABLET PO SCH ×2 (12:26→20:37)
[2021-02-08] MEDS: cloZAPine 25 MG TABLET PO SCH ×2 (12:46→14:57)
[2021-02-08] MEDS ORDERED: cloZAPine 25 MG TABLET PO ONE (13:30)
[2021-02-08] MEDS: traZODone 50 MG TABLET PO PRN (20:37)
[2021-02-09] MEDS: cloZAPine 100 MG TABLET PO SCH ×2 (11:55→20:33)
[2021-02-09] MEDS: cloZAPine 25 MG TABLET PO SCH (11:55)
[2021-02-09] MEDS: *HR* LORazepam 0.5 MG TABLET PO SCH ×2 (11:55→20:34)
[2021-02-09] MEDS: Divalproex (12 HR) 500 MG TABLET PO SCH ×2 (11:56→20:33)
[2021-02-09] MEDS: traZODone 50 MG TABLET PO PRN (20:34)
[2021-02-10] MEDS: cloZAPine 25 MG TABLET PO SCH (10:17)
[2021-02-10] MEDS: cloZAPine 100 MG TABLET PO SCH ×2 (10:18→20:17)
[2021-02-10] MEDS: Divalproex (12 HR) 500 MG TABLET PO SCH ×2 (10:18→20:17)
[2021-02-10] MEDS: *HR* LORazepam 0.5 MG TABLET PO SCH ×2 (10:18→20:17)
[2021-02-10] MEDS: traZODone 50 MG TABLET PO PRN (20:17)
[2021-02-11] MEDS: Divalproex (12 HR) 500 MG TABLET PO SCH ×2 (09:25→20:40)
[2021-02-11] MEDS: cloZAPine 100 MG TABLET PO SCH ×2 (09:25→20:41)
[2021-02-11] MEDS: cloZAPine 25 MG TABLET PO SCH (09:26)
[2021-02-11] MEDS: *HR* LORazepam 0.5 MG TABLET PO SCH ×2 (09:26→20:41)
[2021-02-12] MEDS: cloZAPine 25 MG TABLET PO SCH (09:28)
[2021-02-12] MEDS: cloZAPine 100 MG TABLET PO SCH ×2 (09:29→20:42)
[2021-02-12] MEDS: *HR* LORazepam 0.5 MG TABLET PO SCH ×2 (09:30→20:43)
[2021-02-12] MEDS: Divalproex (12 HR) 500 MG TABLET PO SCH ×2 (09:33→20:43)
[2021-02-12 10:49] LABS: Basophils % 0.6 %; Eosinophils # 0.1 K/mcL (0.0-0.6); Eosinophils % 1.9 %; Hematocrit 41.9 % (37.5-50.1); Hemoglobin 15.2 g/dL (12.9-16.9); Immature Granulocytes % 0.6 % (0-4); Lymphocytes # 1.2 K/mcL (0.6-4.6); Lymphocytes % 17.3 %; Mean Corpuscular HGB Conc 36.3 g/dL (31.6-35.5); Mean Corpuscular Hemoglobin 31.8 pg (28.0-33.3); Mean Corpuscular Volume 87.7 fL (83.0-100.0); Mean Platelet Volume 10.3 fL (9.4-12.4); Monocytes # 0.6 K/mcL (0.0-1.3); Monocytes % 8.1 %; Neutrophils # 4.8 K/mcL (1.6-8.9); Platelet Count 187 K/mcL (140-400); Red Blood Count 4.78 M/mcL (4.19-5.50); Red Cell Distribution Width 11.5 % (11.5-14.5); Segmented Neutrophils % 71.5 %; White Blood Count 6.8 K/mcL (4.3-11.1)
[2021-02-12 11:03] LABS: C-Reactive Protein < 5 mg/L (Less than 10); Creatine Kinase 92 Units/L (30-223)
[2021-02-12 11:11] LABS: Troponin I < 0.03 ng/mL (< 0.04)
[2021-02-12 13:19] LABS: Alanine Aminotransferase 18 Units/L (7-52); Albumin 4.1 g/dL (3.5-5.7); Albumin/Globulin Ratio 2.1 (1.1-2.2); Alkaline Phosphatase 70 Units/L (34-104); Aspartate Amino Transferase 12 Units/L (13-39); BUN/Creatinine Ratio 14 (6-26); Bilirubin,Total 0.6 mg/dL (0.3-1.0); Blood Urea Nitrogen 16 mg/dL (6-20); Calcium 8.9 mg/dL (8.6-10.3); Carbon Dioxide 24 mEq/L (23-29); Chloride 102 mEq/L (98-107); Glucose 133 mg/dL (70-105); Osmolality,Calculated 287 (280-300); Potassium 3.8 mEq/L (3.5-5.1); Sodium 137 mEq/L (136-145); Total Protein 6.1 g/dL (6.4-8.9); eGFR For African Americans > 60 (> 60); eGFR For Non-African Americans > 60 (> 60)
[2021-02-13] MEDS: cloZAPine 25 MG TABLET PO SCH (08:12)
[2021-02-13] MEDS: cloZAPine 100 MG TABLET PO SCH ×2 (08:13→20:07)
[2021-02-13] MEDS: Divalproex (12 HR) 500 MG TABLET PO SCH ×2 (08:14→20:07)
[2021-02-13] MEDS: *HR* LORazepam 0.5 MG TABLET PO SCH ×2 (08:14→20:07)
[2021-02-14] MEDS: cloZAPine 100 MG TABLET PO SCH ×2 (09:36→21:18)
[2021-02-14] MEDS: cloZAPine 25 MG TABLET PO SCH (09:37)
[2021-02-14] MEDS: *HR* LORazepam 0.5 MG TABLET PO SCH ×2 (09:37→21:20)
[2021-02-14] MEDS: Divalproex (12 HR) 500 MG TABLET PO SCH ×2 (09:37→21:20)
[2021-02-15] MEDS: cloZAPine 25 MG TABLET PO SCH (08:09)
[2021-02-15] MEDS: cloZAPine 100 MG TABLET PO SCH ×2 (08:09→20:56)
[2021-02-15] MEDS: Divalproex (12 HR) 500 MG TABLET PO SCH ×2 (08:10→20:56)
[2021-02-15] MEDS: *HR* LORazepam 0.5 MG TABLET PO SCH ×2 (08:10→20:56)
[2021-02-15] MEDS ORDERED: Haloperidol Lactate 5 MG/ML VIAL IM PRN (12:02)
[2021-02-15] MEDS ORDERED: Mag Hydrox/Al Hydrox/Simeth 30 ML UDC PO PRN (12:02)
[2021-02-15] MEDS ORDERED: MOM Conc 10 ML UD.LIQ PO PRN (12:02)
[2021-02-15] MEDS ORDERED: Ibuprofen 400 MG TABLET PO PRN (12:02)
[2021-02-15] MEDS ORDERED: *HR* LORazepam 1 MG TABLET PO PRN (12:02)
[2021-02-15] MEDS ORDERED: *HR* LORazepam 2 MG/ML VIAL IM PRN (12:02)
[2021-02-15] MEDS ORDERED: haloperidoL 5 MG TABLET PO PRN (12:02)
[2021-02-15] MEDS ORDERED: hydrOXYzine pamoate 25 MG CAPSULE PO PRN (12:02)
[2021-02-16] MEDS: Divalproex (12 HR) 500 MG TABLET PO SCH ×2 (08:59→20:19)
[2021-02-16] MEDS: *HR* LORazepam 0.5 MG TABLET PO SCH ×2 (08:59→20:19)
[2021-02-16] MEDS: cloZAPine 100 MG TABLET PO SCH ×2 (09:01→20:19)
[2021-02-17] MEDS: *HR* LORazepam 0.5 MG TABLET PO SCH ×2 (08:15→21:10)
[2021-02-17] MEDS: cloZAPine 100 MG TABLET PO SCH ×2 (08:15→21:10)
[2021-02-17] MEDS: Divalproex (12 HR) 500 MG TABLET PO SCH ×2 (08:15→21:10)
[2021-02-18] MEDS: cloZAPine 100 MG TABLET PO SCH ×2 (08:22→20:04)
[2021-02-18] MEDS: *HR* LORazepam 0.5 MG TABLET PO SCH ×2 (08:23→20:05)
[2021-02-18] MEDS: Divalproex (12 HR) 500 MG TABLET PO SCH ×2 (08:23→20:05)
[2021-02-18] MEDS ORDERED: Paliperidone Palmitate 156 MG/ML SYRINGE IM SCH (10:00)
[2021-02-19] MEDS: *HR* LORazepam 0.5 MG TABLET PO SCH ×2 (09:25→20:37)
[2021-02-19] MEDS: cloZAPine 100 MG TABLET PO SCH ×2 (09:25→20:37)
[2021-02-19 10:01] LABS: Basophils # 0.1 K/mcL (0.0-0.2); Basophils % 0.8 %; Eosinophils # 0.1 K/mcL (0.0-0.6); Eosinophils % 2.2 %; Hematocrit 43.3 % (37.5-50.1); Hemoglobin 15.4 g/dL (12.9-16.9); Immature Granulocytes % 1.2 % (0-4); Lymphocytes # 1.4 K/mcL (0.6-4.6); Lymphocytes % 23.2 %; Mean Corpuscular HGB Conc 35.6 g/dL (31.6-35.5); Mean Corpuscular Hemoglobin 31.6 pg (28.0-33.3); Mean Corpuscular Volume 88.9 fL (83.0-100.0); Mean Platelet Volume 10.9 fL (9.4-12.4); Monocytes # 0.6 K/mcL (0.0-1.3); Neutrophils # 3.7 K/mcL (1.6-8.9); Platelet Count 176 K/mcL (140-400); Red Blood Count 4.87 M/mcL (4.19-5.50); Red Cell Distribution Width 11.7 % (11.5-14.5); Segmented Neutrophils % 62.6 %
[2021-02-19 10:59] LABS: Alanine Aminotransferase 28 Units/L (7-52); Albumin 4.4 g/dL (3.5-5.7); Albumin/Globulin Ratio 2.6 (1.1-2.2); Alkaline Phosphatase 77 Units/L (34-104); Aspartate Amino Transferase 18 Units/L (13-39); BUN/Creatinine Ratio 12 (6-26); Bilirubin,Indirect 0.5 mg/dL (0.0-1.0); Bilirubin,Total 0.5 mg/dL (0.3-1.0); Blood Urea Nitrogen 14 mg/dL (6-20); Calcium 9.4 mg/dL (8.6-10.3); Carbon Dioxide 31 mEq/L (23-29); Chloride 101 mEq/L (98-107); Creatine Kinase 152 Units/L (30-223); Globulin 1.7 g/dL (2.4-3.5); Glucose 110 mg/dL (70-105); Osmolality,Calculated 289 (280-300); Sodium 139 mEq/L (136-145); Total Protein 6.1 g/dL (6.4-8.9); Valproate 42 mcg/mL (50-100); eGFR For African Americans > 60 (> 60); eGFR For Non-African Americans > 60 (> 60)
[2021-02-19 11:05] LABS: C-Reactive Protein < 5 mg/L (Less than 10)
[2021-02-19] MEDS: Divalproex (12 HR) 500 MG TABLET PO SCH (20:37)
[2021-02-20] MEDS: cloZAPine 100 MG TABLET PO SCH ×2 (09:52→21:49)
[2021-02-20] MEDS: *HR* LORazepam 0.5 MG TABLET PO SCH ×2 (09:53→21:50)
[2021-02-20] MEDS: Divalproex (12 HR) 500 MG TABLET PO SCH (21:50)
[2021-02-21] MEDS: cloZAPine 100 MG TABLET PO SCH ×2 (09:31→20:55)
[2021-02-21] MEDS: *HR* LORazepam 0.5 MG TABLET PO SCH ×2 (09:32→20:54)
[2021-02-21] MEDS: Divalproex (12 HR) 500 MG TABLET PO SCH (20:54)
[2021-02-22] MEDS: *HR* LORazepam 0.5 MG TABLET PO SCH ×2 (08:23→20:21)
[2021-02-22] MEDS: cloZAPine 100 MG TABLET PO SCH ×2 (08:23→20:20)
[2021-02-23] MEDS: cloZAPine 100 MG TABLET PO SCH ×2 (08:17→20:45)
[2021-02-23] MEDS: *HR* LORazepam 0.5 MG TABLET PO SCH ×2 (08:18→20:45)
[2021-02-23] MEDS: traZODone 50 MG TABLET PO PRN (20:45)
[2021-02-24] MEDS: cloZAPine 100 MG TABLET PO SCH ×2 (09:22→20:38)
[2021-02-24] MEDS: *HR* LORazepam 0.5 MG TABLET PO SCH ×2 (09:22→20:38)
[2021-02-24] MEDS: Divalproex (12 HR) 500 MG TABLET PO SCH ×2 (10:27→20:38)
[2021-02-24 11:06] LABS: Clozapine-N-Oxide Quant <100 ng/mL; Norclozapine Quant 187 ng/mL
[2021-02-24 12:22] LABS: Clozapine Quant 618 ng/mL
[2021-02-24] MEDS: traZODone 50 MG TABLET PO PRN (20:38)
[2021-02-25] MEDS: cloZAPine 100 MG TABLET PO SCH ×2 (10:41→20:23)
[2021-02-25] MEDS: *HR* LORazepam 0.5 MG TABLET PO SCH ×2 (10:42→20:23)
[2021-02-25] MEDS: Divalproex (12 HR) 500 MG TABLET PO SCH ×2 (10:42→20:23)
[2021-02-25 22:12] VITALS: O2SAT 100
[2021-02-26] MEDS: Divalproex (12 HR) 500 MG TABLET PO SCH (09:46)
[2021-02-26] MEDS: cloZAPine 100 MG TABLET PO SCH (09:47)
[2021-02-26] MEDS: *HR* LORazepam 0.5 MG TABLET PO SCH (09:47)
[2021-02-26 09:50] LABS: Eosinophils # 0.2 K/mcL (0.0-0.6); Eosinophils % 4.6 %; Hematocrit 40.9 % (37.5-50.1); Hemoglobin 14.5 g/dL (12.9-16.9); Lymphocytes # 1.4 K/mcL (0.6-4.6); Lymphocytes % 34.2 %; Mean Corpuscular HGB Conc 35.5 g/dL (31.6-35.5); Mean Corpuscular Hemoglobin 31.5 pg (28.0-33.3); Mean Corpuscular Volume 88.9 fL (83.0-100.0); Mean Platelet Volume 10.3 fL (9.4-12.4); Monocytes # 0.5 K/mcL (0.0-1.3); Monocytes % 11.7 %; Neutrophils # 1.9 K/mcL (1.6-8.9); Platelet Count 191 K/mcL (140-400); Red Cell Distribution Width 11.8 % (11.5-14.5); Segmented Neutrophils % 47.5 %; White Blood Count 4.1 K/mcL (4.3-11.1)
[2021-02-26 10:08] LABS: Alanine Aminotransferase 42 Units/L (7-52); Albumin 4.1 g/dL (3.5-5.7); Alkaline Phosphatase 74 Units/L (34-104); Aspartate Amino Transferase 25 Units/L (13-39); BUN/Creatinine Ratio 9 (6-26); Bilirubin,Total 0.6 mg/dL (0.3-1.0); Blood Urea Nitrogen 10 mg/dL (6-20); Carbon Dioxide 29 mEq/L (23-29); Chloride 104 mEq/L (98-107); Creatine Kinase 439 Units/L (30-223); Globulin 2.1 g/dL (2.4-3.5); Glucose 86 mg/dL (70-105); Osmolality,Calculated 288 (280-300); Potassium 4.1 mEq/L (3.5-5.1); Sodium 140 mEq/L (136-145); Total Protein 6.2 g/dL (6.4-8.9); Troponin I < 0.03 ng/mL (< 0.04); Valproate 50 mcg/mL (50-100); eGFR For African Americans > 60 (> 60); eGFR For Non-African Americans > 60 (> 60)
[2021-02-26 10:52] VITALS: BP 137/90; PULSE 92; TEMP 98.3
[2021-02-26 11:17] LABS: C-Reactive Protein 6 mg/L (Less than 10)
== END 2021-02-26 18:05 | disposition home or self-care (01) | DRG 750 ==
LOC: EMEROOARM 20:33 → 1ANU 12-14 00:01 → SUATTDRO 12-14 00:01 → 1ANU 12-14 00:23
PROVIDERS: ADMIT Psychiatry & Neurology Psychiatry; ATTEND Psychiatry & Neurology Psychiatry